=== PATIENT | female | born 1960 | race Caucasian/White ===

== ENCOUNTER 2020-07-14 10:58 | Outpatient (REF) | payer BC, SELFPAY ==
[2020-07-14 11:31] LABS: Basophils Percent Auto 0.4 % (0-2); Eosinophils Absolute Auto 0.1 X10*3/uL (0.0-0.4); Eosinophils Percent Auto 1.3 % (0-4); Hematocrit 37.8 % (37-47); Hemoglobin 12.5 g/dl (12.0-16.0); Imm Gran Abs Auto 0.02 X10*3/uL (0.00-0.03); Imm Gran Pct Auto 0.4 % (0.0-0.4); Lymphocytes Absolute Auto 0.3 X10*3/uL (1.2-4.9); Lymphocytes Percent Auto 6.2 % (20-40); MANUAL DIFF FLAG SCAN; Mean Corpuscular HGB Conc 33.1 g/dl (31.0-35.0); Mean Corpuscular Hemoglobin 30.1 pg (27.0-33.0); Mean Corpuscular Volume 91.1 fL (80-98); Mean Platelet Volume 10.6 fL (9.4-12.3); Monocytes Absolute Auto 0.9 X10*3/uL (0.1-1.2); Monocytes Percent Auto 19.4 % (2-11); Neutrophils Absolute Auto 3.3 X10*3/uL (2.0-8.3); Neutrophils Percent Auto 72.3 % (45-73); Platelet Count 338 X10*3/uL (160-400); Red Blood Count 4.15 X10*6/uL (4.20-5.50); Red Cell Distribution Width 13.3 % (11.0-16.0); SCAN SMEAR FLAG 1; White Blood Count 4.5 X10*3/uL (4.8-10.8)
[2020-07-14 12:05] LABS: SLIDE REVIEW VERIFIED
== END 2020-07-14 10:59 | disposition home or self-care (01) ==
LOC: HO.LAB 10:58
PROVIDERS: PCP Internal Medicine; Visit Provider Psychiatry & Neurology Neurology
DX: A49.9 Bacterial infection, unspecified (principal)
CPT/HCPCS: 36415; 85025

== ENCOUNTER 2020-10-06 09:41 | Outpatient (REF) | payer BC, SELFPAY ==
--- NOTE | ~2020-10-06 | US_ITS ---
EXAMINATION: US RETROPERITONEAL LIMITED (RENAL ONLY) CLINICAL INFORMATION: Calculus of kidney. COMPARISON: None TECHNIQUE: US shankar-scale imaging of kidneys was performed. FINDINGS: RIGHT KIDNEY: 10.2 x 4.3 x 4.3 cm (SAG x AP x TRV). The kidney is normal in size, contour, and echogenicity. Renal cortical thickness is normal. No calculi or focal parenchymal lesions. There is mild pelvic fullness. LEFT KIDNEY: 10.4 x 4.6 x 5.2 cm (SAG x AP x TRV). The kidney is normal in size, contour, and echogenicity. Renal cortical thickness is normal. There are 2 anechoic cysts in the lower pole measuring 0.6 x 0.5 x 0.5 cm and 1.4 x 1.1 x 1.4 cm. No additional lesions seen. There is no hydronephrosis. US/US renal BI IMPRESSION: Mild pelvic fullness right kidney. Two small cyst lower pole left kidney. No echogenic renal calculi or hydronephrosis.
[2020-10-06 11:26] LABS: Albumin Level 4.3 g/dL (3.5-5.0); Anion Gap 14 (12-20); Blood Urea Nitrogen 22 mg/dL (9-16); Calcium 9.9 mg/dL (8.4-10.2); Carbon Dioxide 26 mmol/L (22-29); Chloride 104 mmol/L (96-108); Estimated Glomerular Filt Rate > 60; Magnesium 2.1 mg/dL (1.6-2.6); Potassium 5.1 mmol/L (3.3-5.1); Sodium 139 mmol/L (135-145)
[2020-10-08 10:22] LABS: Calcium (PTHI) 10.2 mg/dL (8.6-10.4); PTHI 79 pg/mL (14-64)
== END 2020-10-06 09:42 | disposition home or self-care (01) ==
LOC: HO.US 09:41
PROVIDERS: Internal Medicine Hypertension Specialist; PCP Internal Medicine; Visit Provider Urology
DX: N20.0 Calculus of kidney (principal); I10 Essential (primary) hypertension; D63.8 Anemia in other chronic diseases classified elsewhere
CPT/HCPCS: 36415; 76775; 80051; 82040; 82310; 82565; 83735; 83970; 84520

== ENCOUNTER → 2020-10-08 09:07 | Outpatient (BNVA) | payer BC, SELFPAY | PROVIDERS: Visit Provider Urology ==

== ENCOUNTER 2021-10-06 08:27 | Outpatient (REF) | payer BC, SELFPAY ==
[2021-10-06 10:04] LABS: Alanine Aminotransferase 29 U/L (0-31); Alkaline Phosphatase 103 U/L (39-117); Anion Gap 11 (12-20); Aspartate Amino Transferase 22 U/L (5-31); Bilirubin Total 0.4 mg/dL (0.0-1.0); Blood Urea Nitrogen 17 mg/dL (9-16); Calcium 9.7 mg/dL (8.4-10.2); Carbon Dioxide 26 mmol/L (22-29); Chloride 106 mmol/L (96-108); Estimated Glomerular Filt Rate > 60; Glucose Random 96 mg/dL (60-115); Potassium 4.9 mmol/L (3.3-5.1); Sodium 138 mmol/L (135-145)
[2021-10-06 10:20] LABS: Vitamin D 25-OH Total 27.5 ng/mL (>30)
[2021-10-06 10:22] LABS: Uric Acid 5.4 mg/dL (2.4-5.7)
[2021-10-07 14:21] LABS: Calcium (PTHI) 9.6 mg/dL (8.6-10.4); PTHI 75 pg/mL (16-77)
== END 2021-10-06 08:28 | disposition home or self-care (01) ==
LOC: HO.LAB 08:27
PROVIDERS: PCP Physician Assistant Medical; Visit Provider Internal Medicine Hypertension Specialist
DX: N20.0 Calculus of kidney (principal)
CPT/HCPCS: 36415; 80053; 82306; 83970; 84550

== ENCOUNTER → 2021-10-07 08:10 | Outpatient (BNVA) | payer BC, SELFPAY | PROVIDERS: PCP Internal Medicine | DX: N28.1 Cyst of kidney, acquired (principal) ==

== ENCOUNTER 2021-12-05 10:02 | Outpatient (REF) | payer BC, SELFPAY ==
--- NOTE | ~2021-12-05 | US_ITS ---
EXAMINATION: US RETROPERITONEAL LIMITED (RENAL ONLY) CLINICAL INFORMATION: Cyst of kidney, acquired. COMPARISON: Renal ultrasound 10/06/2020, 10/01/2019, KUB 03/08/2016 TECHNIQUE: Real-time imaging of the kidneys. FINDINGS: RIGHT KIDNEY: 9.9 x 4.0 x 4.4 cm (SAG x AP x TRV). The kidney is normal in size, contour, and echogenicity. Renal cortical thickness is normal. No visible calculi or focal parenchymal lesions. No hydronephrosis. LEFT KIDNEY: 10.0 x 4.8 x 5.1 cm (SAG x AP x TRV). The kidney is normal in size, contour, and echogenicity. Renal cortical thickness is normal. 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 No visible renal calculi or hydronephrosis. There are 2 incidental simple cysts, the larger mid to lower pole measuring only 1.3 cm and the smaller lower pole measuring only 0.7 cm. No additional imaging recommended. US/US renal BI IMPRESSION: -No hydronephrosis or caliectasis. No visible calculi. -2 small incidental simple cysts left kidney, larger measuring only 1.3 cm. No additional imaging recommended.
== END 2021-12-05 10:03 | disposition home or self-care (01) ==
LOC: HO.US 10:02
DX: N28.1 Cyst of kidney, acquired (principal); N20.0 Calculus of kidney
CPT/HCPCS: 76775

== ENCOUNTER 2022-09-15 08:29 | Outpatient (REF) | payer BC, SELFPAY ==
--- NOTE | ~2022-09-15 | US_ITS ---
EXAMINATION: US RETROPERITONEAL LIMITED (RENAL ONLY) CLINICAL INFORMATION: Cyst of kidney, acquired. COMPARISON: Renal ultrasound 12/05/2021 and 10/06/2020. X-ray KUB 03/08/2016. TECHNIQUE: Real-time imaging of the kidneys. FINDINGS: RIGHT KIDNEY: 9.9 x 4.4 x 3.7 cm (SAG x AP x TRV). The kidney is normal in size, contour, and echogenicity. Renal cortical thickness is normal. No focal parenchymal lesions or hydronephrosis. There is an echogenic stone in lower pole measuring 0.2 x 0.2 x 0.2 cm. There is mild pelvic fullness. LEFT KIDNEY: 9.9 x 5.2 x 4.6 cm (SAG x AP x TRV). The kidney is normal in size, contour, and echogenicity. Renal cortical thickness is normal. No renal calculi or hydronephrosis. There are anechoic cysts in the lower pole measuring 1.2 x 1.2 x 1.2 cm and 0.7 0.6-0.7 cm. US/US renal BI IMPRESSION: 1. Nonobstructive echogenic renal calculi lower pole right kidney. 2. 2 anechoic cysts right kidney. 3. Mild pelvic fullness right kidney. 4. No major change from previous ultrasound exam 12/05/2021.
== END 2022-09-15 08:30 | disposition home or self-care (01) ==
LOC: HO.US 08:29
PROVIDERS: Visit Provider Nurse Practitioner Family
DX: N28.1 Cyst of kidney, acquired (principal)
CPT/HCPCS: 76775

== ENCOUNTER → 2022-10-05 08:46 | Outpatient (BNVA) | payer BC, SELFPAY | PROVIDERS: PCP Internal Medicine; Visit Provider Nurse Practitioner Family ==

== ENCOUNTER 2022-10-20 09:30 | Outpatient (REF) | payer BC, SELFPAY ==
[2022-10-20 10:54] LABS: Appearance Urine Clear; Color Urine Yellow; Glucose Urine UA Negative (Negative); Leukocyte Esterase Urine Small (1+) (Negative); Nitrite Urine Negative (Negative); UMIC TRIGGER UA YES; Urine Blood Negative (Negative); Urine Ketones Negative (Negative); Urine Protein Negative (Neg-Trace)
[2022-10-20 11:07] LABS: Bacteria Urine Trace (None Seen); Hyaline Casts Urine 0-2 /LPF (0-2); RBC Urine 0-2 /HPF (0-2); WBC Urine 0-5 /HPF (0-5)
== END 2022-10-20 09:31 | disposition home or self-care (01) ==
LOC: HO.LAB 09:30
PROVIDERS: PCP Physician Assistant Medical; Visit Provider Internal Medicine Hypertension Specialist
DX: I10 Essential (primary) hypertension (principal); N20.0 Calculus of kidney
CPT/HCPCS: 36415; 80053; 81001

== ENCOUNTER 2023-09-24 07:49 | Outpatient (REF) | payer BC, SELFPAY ==
--- NOTE | ~2023-09-24 | US_ITS ---
EXAMINATION: US RETROPERITONEAL LIMITED (RENAL ONLY) CLINICAL INFORMATION: Calculus of kidney. COMPARISON: Renal ultrasound 09/15/2022 and 12/05/2021. CT abdomen and pelvis 07/20/2012. TECHNIQUE: Real-time imaging of the kidneys. FINDINGS: RIGHT KIDNEY: 9.8 x 3.9 x 4.7 cm (SAG x AP x TRV). The kidney is normal in size, contour, and echogenicity. Renal cortical thickness is normal. No renal calculi or hydronephrosis. 6 mm simple cyst in the lower pole. No follow-up imaging is recommended. LEFT KIDNEY: 10.5 x 4.8 x 4.8 cm (SAG x AP x TRV). The kidney is normal in size, contour, and echogenicity. Renal cortical thickness is normal. No renal calculi or hydronephrosis. 9 mm simple cyst in the lower pole. 1.4 cm simple cyst in the lower pole. No follow-up imaging is recommended. US/US renal BI IMPRESSION: No nephrolithiasis or hydronephrosis.
== END 2023-09-24 07:50 | disposition home or self-care (01) ==
LOC: HO.US 07:49
PROVIDERS: PCP Physician Assistant Medical; Visit Provider Nurse Practitioner Family
DX: N20.0 Calculus of kidney (principal)
CPT/HCPCS: 76775

== ENCOUNTER 2023-10-03 08:25 | Outpatient (AMB) | payer BC, SELFPAY ==
--- NOTE | 2023-10-03 08:28 | A.OFFVIS_ITS ---
Intake Visit Reasons: 1y/US(set) Intake Note: Patient is present for follow up nephrolithiasis/ultrasound (imaging 09/15/22) Urology Medications: vitamin b6 (patient requesting refills) Blood Thinner: none Procurement Forester Required: No Accompanied by: Self / Same As Patient Allergies levofloxacin [From LEVAQUIN] Allergy (Severe, Verified 10/03/23 09:04) RENDERS PT IMMOBILE acetaminophen [From PERCOCET] Allergy (Unknown, Verified 10/03/23 09:04) NAUSEA & VOMITING lisinopril Allergy (Unknown, Verified 10/03/23 09:04) Unknown oxycodone [From PERCOCET] Allergy (Unknown, Verified 10/03/23 09:04) NAUSEA & VOMITING gluten Adverse Reaction (Unknown, Uncoded 10/03/23 09:04) constipation Medication List - Last Reconciled 10/03/23 by SUNDAY Saunders losartan 50 mg PO DAILY ocrelizumab (Ocrevus) 600 mg IV [id number] pyridoxine (vitamin B6) 50 mg (1/2 x 100 mg) PO DAILY 90 days sodium bicarbonate 650 mg PO DAILY 90 days HPI Comments Details: Ana Laura is a pleasant 63 year old female patient of Dr. Alva. She presents to the office today for follow-up of her nephrolithiasis and renal cyst. Recent renal ultrasound results reviewed with the patient today. Bilateral kidneys with no calculi or hydronephrosis. Bilateral benign simple cysts noted that require no follow-up imaging per radiology report. In discussion with the patient today she reports to be doing and feeling well. She reports compliance with vitamin B6 50 mg daily as prescribed. She reports having come off of her MS medications and has been receiving IV infusions every 6 months and feels this has been extremely helpful. She currently denies any bothersome urinary issues or concerns. She discusses working full-time to save up for her house remodel she is currently undergoing. She denies urinary urgency, urinary frequency, incontinence, nocturia, hematuria, dysuria, foul smelling urine, changes to urinary stream, flank pain, fever, and or chills. She is happy with her current voiding parameters. In office urinalysis results r eviewed with the patient today. She discusses her long history and nelson with MS for over 35 years. Nephrolithiasis Prior history of kidney stones Doing well with hydration in using lemon water therapy Imaging 10/01 left 2 small renal cyst Imaging 10/03 right 2mm stone lower pole; left 2 small renal cyst. Therapeutic plan - continue fluid intake - interval imaging - continue Vitamin B6 [facility] Medical History Multiple sclerosis Review of Systems Const Reports as per HPI Eyes Reports no additional complaints ENT Reports no additional complaints Card Reports no additional complaints Resp Reports no additional complaints GI Reports no additional complaints Reports as per HPI Musc Reports no additional complaints Neuro Reports as per HPI Psych Reports no additional complaints Endo Reports no additional complaints Matthias/Lymph Reports no additional complaints Aller/Immun Reports no additional complaints Physical Exam Const General: cooperative, healthy appearing, comfortable, no acute distress, well developed, alert and awake Orientation/consciousness: patient oriented x3 Limitations: no limitations HEENT Head: Yes normal to inspection, Yes normocephalic and Yes atraumatic Ears: hearing grossly normal bilaterally Eyes General: appearance normal, both eyes and all related structures Neck Neck: Yes normal visual inspection and Yes trachea midline Chest Chest palpation & inspection: normal inspection of the chest Resp Effort & Inspection: normal respiratory effort and able to speak in complete sentences Cardio Rate: regular rate GI Inspection: Yes normal to inspection General: Yes no CVA tenderness Back/Spine/Pelvis Back: no CVA tenderness Skin General skin exam: no rashes or lesions noted Neuro General: patient oriented x3 Extrem General: Yes normal to inspection Psych Appearance: grossly normal and well kempt Mental Status: mental status grossly normal Speech and movement: Normal speech and movement present and Clear speech present Affect: normal affect Attitude: cooperative Thought process: Normal thought process present Thought content: Normal thought content present Insight: Good insight present (Psych) Judgement: Good judgement present (Psych) Results AMB Urinalysis, Automated UA Leukoctes 70 Farida/uL Last Edit by Mya Martinez on 10/03/23 08:48 UA Nitrite Negative Last Edit by Mya Martinez on 10/03/23 08:48 UA Urobilinogen 0.2 mg/dL Last Edit by Mya Martinez on 10/03/23 08:48 UA Protein 15 mg/dL Last Edit by Mya Martinez on 10/03/23 08:48 UA pH 5.5 Last Edit by Mya Martinez on 10/03/23 08:48 UA Blood 0 Emmett/uL Last Edit by Mya Martinez on 10/03/23 08:48 UA Specific [place] 1.015 Last Edit by Mya Martinez on 10/03/23 08:48 UA Ketone Negative Last Edit by Mya Martinez on 10/03/23 08:48 UA Bilirubin 0 mg/dL Last Edit by Mya Martinez on 10/03/23 08:48 UA Glucose 0 mg/dL Last Edit by Mya Martinez on 10/03/23 08:48 Results Reviewed Results Reviewed: Laboratory Last Values Urine pH (Auto) 5.5 10/03/23 08:43 Specific [place] (Auto) 1.015 10/03/23 08:43 Urine Protein (Auto) 15 mg/dL 10/03/23 08:43 Glucose (UA)(Auto) 0 mg/dL 10/03/23 08:43 Urine Ketones (Auto) Negative 10/03/23 08:43 Urine Blood (Auto) 0 Emmett/uL 10/03/23 08:43 Urine Nitrite (Auto) Negative 10/03/23 08:43 Urine Bilirubin (Auto) 0 mg/dL 10/03/23 08:43 Urine Urobilinogen (Auto) 0.2 mg/dL 10/03/23 08:43 Leukocyte Esterase (Auto) 70 [place]/uL 10/03/23 08:43 Date of Service: 09/24/23 EXAMINATION: US RETROPERITONEAL LIMITED (RENAL ONLY) FINDINGS: RIGHT KIDNEY: 9.8 x 3.9 x 4.7 cm (SAG x AP x TRV). The kidney is normal in size, contour, and echogenicity. Renal cortical thickness is normal. No renal calculi or hydronephrosis. 6 mm simple cyst in the lower pole. No follow-up imaging is recommended. LEFT KIDNEY: 10.5 x 4.8 x 4.8 cm (SAG x AP x TRV). The kidney is normal in size, contour, and echogenicity. Renal cortical thickness is normal. No renal calculi or hydronephrosis. 9 mm simple cyst in the lower pole. 1.4 cm simple cyst in the lower pole. No follow-up imaging is recommended. IMPRESSION: No nephrolithiasis or hydronephrosis. Assessment & Plan Assessment & Plan (1) Renal cyst: Code(s): N28.1 - Cyst of kidney, acquired Category: Medical (2) Nephrolithiasis: Code(s): N20.0 - Calculus of kidney Category: Medical Plan In office urinalysis results reviewed with the patient today; as noted above. Recent renal imaging results reviewed with the patient today; as noted above. Patient currently denies any bothersome urinary issues or concerns. She reports be happy with current voiding parameters. Continue vitamin B6 50 mg daily as discussed and prescribed. Discussed, educated, and stressed the importance of drinking plenty of water daily. Will obtain renal ultrasound in 1 year. Follow-up in 1 year with imaging to be completed prior; or sooner with any issues, concerns, and or questions. Orders: Orders AMB Urinalysis Automated Today Z13.9 - Encounter for screening, unspecified US renal BI 1 Year N20.0 - Calculus of kidney, N28.1 - Cyst of kidney, acquired Patient Instructions: The patient had an opportunity to ask questions regarding the treatment plan. All questions were answered. Physical exam, labs, and imaging were discussed and reviewed in detail. As well as risks, benefits, and discussion of treatment choices. No major barriers to understanding were identified. The patient expressed understanding and agreement with the above treatment plan. The patient was made aware they should contact our office by phone for worsening of their current condition, the appearance of new symptoms, or with any questions or concerns. Compliance is encouraged with any medications and follow up testing that is ordered. It is a privilege to be allowed the opportunity to participate in? your urological care.? Again, if you have any questions or concerns If you have any questions or concerns please do not hesitate to contact me. The office is [phone]. This note is constructed using voice recognition software. While every effort has been made to ensure accuracy warehouse delivery driver errors may have been included. Yours sincerely, SUNDAY Saunders Coding Level of Care Code Est Pt Level 3 (19556) Diagnoses Renal cyst N28.1 Nephrolithiasis N20.0
== END 2023-10-03 09:02 | disposition home or self-care (01) ==
PROVIDERS: Visit Provider Nurse Practitioner Family
DX: N28.1 Cyst of kidney, acquired (principal); N20.0 Calculus of kidney; Z13.9 Encounter for screening, unspecified
CPT/HCPCS: 99213

== ENCOUNTER → 2023-10-03 08:25 | Outpatient (BNVA) | payer BC, SELFPAY | PROVIDERS: Visit Provider Nurse Practitioner Family | DX: N28.1 Cyst of kidney, acquired (principal); N20.0 Calculus of kidney | CPT/HCPCS: 81003 ==

== ENCOUNTER 2023-10-15 10:28 | Outpatient (AMB) | payer BC, SELFPAY ==
[2023-10-15 10:33] VITALS: BP 132/72; PULSE 74; O2SAT 96; BMI 33.5
--- NOTE | 2023-10-15 10:33 | HO.NEPHOV_ITS ---
Vital Signs 10/15/23 10:33 Height 5 ft 3.5 in Weight 192 lb BMI 33.5 BP 132/72 Blood Pressure Location Rt brachial Position Sitting Pulse 74 Pulse Source Pulse Oximeter Pulse Oximetry (%) 96 Oxygen Delivery Method Room Air Intake Visit Reasons: Kidney stones 1 year follow up/ Confirmed Lehr Tender Required: No Accompanied by: Self / Same As Patient Allergies levofloxacin [From LEVAQUIN] Allergy (Severe, Verified 10/15/23 10:35) RENDERS PT IMMOBILE acetaminophen [From PERCOCET] Allergy (Unknown, Verified 10/15/23 10:35) NAUSEA & VOMITING lisinopril Allergy (Unknown, Verified 10/15/23 10:35) Unknown oxycodone [From PERCOCET] Allergy (Unknown, Verified 10/15/23 10:35) NAUSEA & VOMITING gluten Adverse Reaction (Unknown, Uncoded 10/03/23 09:04) constipation Medication List - Last Reconciled 10/15/23 by Topher Hammer MD losartan 50 mg PO DAILY ocrelizumab (Ocrevus) 600 mg IV [id number] pyridoxine (vitamin B6) 50 mg (1/2 x 100 mg) PO DAILY 90 days sodium bicarbonate 650 mg PO DAILY 90 days HPI Comments Details: 62-year-old woman with a history of nephrolithiasis. From renal standpoint she is doing well. No new renal issues. She is on sodium bicarbonate tablets History of MS [facility] Medical History Multiple sclerosis Family History (Updated 10/15/23 @ 10:36 by Nicolette Cancino) Mother Hypertension Social History (Updated 10/15/23 @ 10:36 by Nicolette Cancino) Patient Tobacco Use Status: Former Tobacco user Physical Exam Vital Signs: Last Vital Signs Pulse 74 10/15/23 10:33 BP 132/72 10/15/23 10:33 Pulse Ox 96 10/15/23 10:33 Oxygen Delivery Method Room Air 10/15/23 10:33 BMI result Body Mass Index 33.5 Awake. Comfortable. Neck is supple. Mucosa moist. Lungs bilateral scattered rhonchi. Heart S1-S2 heard no gallop. Abdomen soft. Extremities no edema. No involuntary movements. No myoclonus. Results Reviewed Nephrology Results: Sodium 138 mmol/L (135-145) 10/06/21 Potassium 4.9 mmol/L (3.3-5.1) 10/06/21 Chloride 106 mmol/L (96-108) 10/06/21 Carbon Dioxide 26 mmol/L (22-29) 10/06/21 BUN 17 mg/dL (9-16) H 10/06/21 Creatinine 0.71 mg/dL (0.5-1.4) 10/06/21 Calcium 9.7 mg/dL (8.4-10.2) 10/06/21 PTH Intact 75 pg/mL (16-77) 10/06/21 Urine Protein Negative mg/dL (Neg-Trace) 10/20/22 Renal US 09/24/23 Assessment & Plan Assessment & Plan (1) Nephrolithiasis: Code(s): N20.0 - Calculus of kidney Category: Medical Plan Recent renal ultrasonogram did not reveal any renal stones. Encouraged her to stay on low-sodium diet Increase p.o. fluid intake to maintain a urine output of 2 L. Blood pressure is well controlled. No changes were made today. She will see her again in the next 1 year Orders: Orders Basic Metabolic Panel 11 Months N20.0 - Calculus of kidney UA and rflx microscopic 11 Months N20.0 - Calculus of kidney Complete Blood Count Auto Diff 11 Months N18.30 - Chronic kidney disease, stage 3 unspecified, N20.0 - Calculus of kidney Medications: Refilled sodium bicarbonate 650 mg PO DAILY 90 tabs 1RF 90 days Coding Level of Care Code Est Pt Level 3 (54072) Diagnoses Nephrolithiasis N20.0
== END 2023-10-15 11:01 | disposition home or self-care (01) ==
PROVIDERS: PCP Physician Assistant Medical; Visit Provider Internal Medicine Hypertension Specialist
DX: N20.0 Calculus of kidney (principal)
CPT/HCPCS: 99213

== ENCOUNTER → 2023-10-15 10:28 | Outpatient (BNVA) | payer BC, SELFPAY | PROVIDERS: PCP Physician Assistant Medical; Visit Provider Internal Medicine Hypertension Specialist ==

== ENCOUNTER 2024-09-15 07:44 | Outpatient (REF) | payer BC, SELFPAY ==
--- NOTE | ~2024-09-15 | US_ITS ---
CLINICAL HISTORY: N20.0 - Calculus of kidney US renal with Color Doppler Comparison: US/SR - US RENAL BI - 09/24/23 07:57 EDT US/SR - US RENAL BI - 09/15/22 08:42 EDT US/SR - US RENAL BI - 12/05/21 10:09 EDT Findings: Right kidney normal size and echotexture, 10.8 cm length. Mild pelvicaliectasis. Normal color flow. No nephrolithiasis. Lower pole renal cortical cyst measuring 9 x 8 x 9 mm previously measuring 6 x 5 x 6 mm. Left kidney normal size and echotexture, 11.5 cm length. No nephrolithiasis. Normal color flow. Hypoechoic lesion lower pole measuring 1.4 x 1.3 x 1.2 cm previously measuring 1.4 x 1.3 x 1.0 cm and 0.9 x 0.8 x 0.7 cm previously measuring 0.9 x 0.8 x 0.8 cm. Impression: 1. Kidneys normal size and position with normal cortical width and echotexture. No nephrolithiasis. Mild pelvicaliectasis on the right. Renal cortical cyst lower pole right kidney. Indeterminate hypoechoic lesions lower pole left kidney little changed can be correlated with a dedicated CT or MRI renal protocol study with and without contrast This document has been electronically signed by: Adonis Gavin MD on 09/15/2024 08:58:02
--- OUTSIDE RECORDS SUMMARY | 2024-09-15 07:47 | XMS_ITS | Encounter Summary ---
Author Organization [facility] Address [address] [place] [id number] Care Team Providers Care Bread Racker Name Role Phone Tia Goodwin PA-C Primary Care Provi margo Eloy Canales MD Unavailable [phone] Cecille Mendez MD Unavailable [phone] Encounter Details Date Type Department Care Team (Late Contact Info) Description 04/29/2024 Scanned Document [facility] [address] [place] [address] Neurology, Scan Social History Tobacco Use Types Packs/Day Years Used Date Smoking Tobacco: Former Cigarettes 1 25 Smokeless Tobacco: Never Alcohol Use Standard Drinks/Week Comments Not Currently 0 (1 standard drink = 0.6 oz pur e alcohol) PHQ-2 Answer Date Recorded PHQ-2 Total Score 0 02/20/2024 Comments Unknown Sex and Gender Information Value Date Recorded Sex Assigned at Not on file Legal Sex Female 6:46 PM EST Gender Identity Not on file Sexual Orientation Not on file documented as of this encounter Plan of Treatment Upcoming Encounters Date Type Department Care Team (Late Contact Info) Description 02/24/2025 8:30 AM EDT Office Visit [address] [place] [phone] Tia Goodwin PA-C [address] [place] [phone] documented as of this encounter Visit Diagnoses Not on filedocumented in this encounter Care Teams Bread Racker Relationship Specialty Start Date End Date Tia Goodwin PA-C [address] [place] [address] PCP - General Internal Medicine 08/26/23 Eloy Canales MD [address] [address] Neurology 08/26/23 Cecille Mendez MD [address] [facility] [address] [place] [address] Referring Provider Obstetrics and Gynecology 08/26/23 Natalie Walker Physician Gastroenterology 08/13/23 documented as of this encounter
--- OUTSIDE RECORDS SUMMARY | 2024-09-15 07:47 | XMS_ITS | Encounter Summary ---
Author Organization [address] [address] Care Team Providers Care Resource Agent Name Role Phone Tia Goodwin PA-C Primary Care Provi margo Eloy Canales MD Unavailable [phone] Cecille eMndez MD Unavailable [phone] Encounter Details Date Type Department Care Team (Late Contact Info) Description 08/28/2023 Scanned Document [address] [phone] Primary Care, Scan Social History Tobacco Use Types Packs/Day Years Used Date Smoking Tobacco: Former Cigarettes 1 25 Smokeless Tobacco: Never Alcohol Use Standard Drinks/Week Comments Not Currently 0 (1 standard drink = 0.6 oz pur e alcohol) PHQ-2 Answer Date Recorded PHQ-2 Total Score 0 08/27/2023 Comments Unknown Sex and Gender Information Value Date Recorded Sex Assigned at Not on file Legal Sex Female 6:46 PM EST Gender Identity Not on file Sexual Orientation Not on file documented as of this encounter Plan of Treatment Upcoming Encounters Date Type Department Care Team (Late Contact Info) Description 02/24/2025 8:30 AM EDT Office Visit [address] [phone] Tia Goodwin PA-C [address] [place] [phone] documented as of this encounter Visit Diagnoses Not on filedocumented in this encounter Care Teams Resource Agent Relationship Specialty Start Date End Date Tia Goodwin PA-C [address] [place] [address] PCP - General Internal Medicine 08/26/23 Eloy Canales MD [address] [address] Neurology 08/26/23 Cecille Mendez MD 46 [facility] [place]Note 2] [address] [place] [address] Referring Provider Obstetrics and Gynecology 08/26/23 Natalie Walker Physician Gastroenterology 08/13/23 documented as of this encounter
--- OUTSIDE RECORDS SUMMARY | 2024-09-15 07:47 | XMS_ITS | Encounter Summary ---
Author Organization [address] [address] Care Team Providers Care Fitness Centre Manager Name Role Phone Tia Goodwin PA-C Primary Care Provi margo Eloy Canales MD Unavailable [phone] Cecille Mendez MD Unavailable [phone] Encounter Details Date Type Department Care Team (Late st Contact Info) Description 08/27/2023 Scanned Document [address] [phone] Primary Care, Scan Social History Tobacco Use [...] on file documented as of this encounter Functional Status * Question Answer Date of Assessment Author Feeling nervous, anxious, or on edge 0 08/27/2023 8:24 AM EDT Vickie Ryan MA Not being able to stop or control worrying 0 08/27/2023 8:24 AM EDT Vickie Ryan MA Worrying too much about different things 0 08/27/2023 8:24 AM EDT Vickie Ryan MA Trouble relaxing 0 08/27/2023 8:24 AM EDT Vickie Sommers MA Being so restless that it is hard to sit still 1 08/27/2023 8:24 AM Vickie Ness MA Becoming easily annoyed or irritable 0 08/27/2023 8:24 AM Vickie Ness MA Feeling afraid as if somethi ng awful might happen 0 08/27/2023 8:24 AM JENNIFERT Vickie Ryan MA * Over the past 2 weeks, how often have you been bothered by any of the following problems? Question Answer Date of Assessment Author Patient Health Questionnaire -2 Score 0 08/27/2023 8:23 AM Vickie Ness MA * Question Answer Date of Assessment Author Patient Health Questionnaire -9 Score 0 08/27/2023 8:23 AM Vickie Ness MA * Over the last 2 weeks, how often have you been bothered by any of the following problems? Question Answer Date of Assessment Author ALEXANDER-7 Total Score 1 08/27/2023 8:24 AM Vickie Ness MA * Question Answer Date of Assessment Author Little interest or pleasure in doing things Not at all 08/27/2023 8:23 AM Vickie Ness MA Feeling down, depressed, or hopeless Not at all 08/27/2023 8:23 AM Vickie Ness MA Trouble falling or staying asleep, or sleeping too much Not at all 08/27/2023 8:23 AM Vickie Ness MA Feeling tired or having little energy Not at all 08/27/2023 8:23 AM Vickie Ness MA Poor appetite or overeating Not at all 08/27/2023 8:23 AM Vickie Ness MA Feeling bad about yourself - or that you are a failure or have let yourself or your family down Not at all 08/27/2023 8:23 AM Vickie Ness MA Trouble concentrating on things, such as reading the newspaper or watching television Not at all 08/27/2023 8:23 AM EDT Vickie Ryan MA Moving or speaking so slowly that other people could have noticed? Or the opposite - being so fidgety or restless that you have been moving around a lot more than usual. Not at all 08/27/2023 8:23 AM EDT Vickie Ryan MA Thoughts that you would be better off or hurting yourself in some way Not at all 08/27/2023 8:23 AM EDT Vickie Ryan MA How difficult have these problems made it for you to do your work, take care of things at home, or get along with other people? Not difficult at all 08/27/2023 8:23 AM EDT Vickie Ryan MA documented as of this encounter Plan of Treatment Upcoming Encounters Date Type Department Care Team (Late st Contact Info) Description 02/24/2025 8:30 AM EDT [facility] [address] [facility] [address] [place] [address] Tia Goodwin PA-C [address] [place] [address] documented as of this encounter Visit Diagnoses Not on filedocumented in this encounter Care Teams Fitness Centre Manager Relationship Specialty Start Date End Date Tia Goodwin PA-C [address] [place] [address] PCP - General Internal Medicine 08/26/23 Eloy Canales MD [address] [address] Neurology 08/26/23 Cecille Mendez MD 46 [facility] [address] [place] [address] Referring Provider Obstetrics and Gynecology 08/26/23 Natalie Walker Physician Gastroenterology 08/13/23 documented as of this encounter
--- OUTSIDE RECORDS SUMMARY | 2024-09-15 07:47 | XMS_ITS ---
Author Organization [facility] Address [address] [place] [address] Care Team Providers Care Director Of Sales And Marketing Name Role Phone KAMINI KRISTINA YOMI Primary Care Provider Unavail able Cecille Mendez Unavailable [phone] Allergies Allergen (clinical drug ingredient) Drug/Non Drug Allergy documented on EMR Reaction Allergy Type Onset Date Status LEVAQUIN Kidney Stones Drug Allergy Act varghese Lisinopril Cough/Vomiting Drug Allergy A ctive Results Component Value Reference Range Notes [id number] IGP No Culture 30 Plus Reviewed date:02/04/2024 03:28:00 PM Interpretation: Performing Lab:[facility] [place], [address], [address], [place], Phone - [phone], Director - [facility] Notes/Report: Clinical Information:[id number] Dates / Results....01/14/21 NIL, Neg HPV Other..............Post Menopausal No. of containers..01 ThinPrep Vial DIAGNOSIS: NEGATIVE FOR IN TRAEPITHELIAL LESION OR MALIGNANCY. Specimen adequacy: Satisfactory for evaluation. Endocervical and/or squamous metaplastic cells (endocervical component) are present. Clinician provided ICD10: Z0 1.419 Performed by: Lois Navarro ytotechnologist (ASCP) . . Note: The Pap smear is a screening test designed to aid in the detection of premalignant and malignant conditions of the uterine cervix. It is not a diagnostic procedure and should not be used as the sole means of detecting cervical cancer. Both false-positive and false-negative reports do occur. . Test Methodology: This liquid based ThinPrep(R) pap test was screened with the use of an image guided system. HPV Aptima Negative Negative This nucleic acid amplification test detects fourteen high-risk HPV types (16,18,31,33,35,39,45,51,52,56,58 ,59,66,68) without differentiation. HPV Genotype Reflex Criteria not met, HPV Genotype not performed. PDF Report Reviewed date:02/04/2024 03:27:46 PM Interpretation: Performing Lab:[facility] [place], [address], [address], [place], Phone - [phone], Director - [facility] Notes/Report: Clinical Information:[id number] Dates / Results....01/14/21 NIL, Neg HPV Other..............Post Menopausal No. 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, Annual VB DEVELOPER Physical 60-85+ Medications Medication SIG (Take, Route, Frequency, Duration) Notes Start Date End Date Status Vitamin C 500MG 1 ORAL twice daily f or -3 Leno-MJ 02/07/2012 Active Turmeric 500 MG as directed Orally unknonw dose Active Losartan Potassium 50 MG Orally Active Magnesium 400 MG as directed Orally unknown dose Active Apple Cider Vinegar 600 MG as directed Orally unknown dose Active Sodium Bicarbonate 650 MG 1 tablet Orally Three times a day Active Ocrevus 300 MG/10ML as directed Intravenous 01/30/2024 Active Vitamin D3 50 MCG (2000 UT) 1 capsule Orally Once a day for 30 day(s) Active Social History Tobacco Use: Social History Observation Description Date Details (start date - stop date) Former Smoker NA - NA Tobacco Use/Smoking Question Answer Notes Are you a former smoker How long has it been since you last smoked? > 10 years Alcohol Screen (Audit-C) Question Answer Notes Did you have a drink contain ing alcohol in the past year? Yes How often did you have a dri nk containing alcohol in the past year? Monthly or less (1 point) How many drinks did you have on a typical day when you were drinking in the past year? 1 or 2 drinks (0 point) Points 1 Interpretation Negative Sexual History Question Answer Notes Had sex in the past 12 months (vaginal, oral, or anal)? No Vital Signs Height 62 in 01/30/2024 Weight 186 lbs 01/30/2024 BMI 34.02 kg/m2 01/30/2024 Blood pressure systolic 140 mm Hg 01/30/20 24 Blood pressure diastolic 100 mm Hg 024 Temperature 97.8 degrees Fahrenheit 01/30/20 24 Encounters Encounter Location Date Provider Diagnosis [address] [place] [address] 01/30/2024 Cecille Andrea Encounter for gynecological examination (general) (routine) without abnormal findings Z01.419 ; Encounter for screening mammogram for malignant neoplasm of breast Z12.31 ; Encounter for screening for osteoporosis Z13.820 ; Postmenopausal atrophic vaginitis N95.2 and Personal history of other diseases of the female genital tract Z87.42 Assessments Encounter Date Diagnosis (ICD Code) Assessment Notes Treatment Notes Treatment Clinical Notes Section Notes 01/30/2024 Encounter for gynecological examination (general) (routine) without abnormal findings (ICD-10 - Z01.419) PAP TEST WITH HPV TYPING WAS OBTAINED. 01/30/2024 Encounter for screening mammogram for malignant neoplasm of breast (ICD-10 - Z12.31) REGULAR MAMMOGRAMS AND SBE'S WERE RECOMMENDED. 01/30/2024 Encounter for screening for osteoporosis (ICD-10 - Z13.820) BMD WAS ORDERED. 01/30/2024 Postmenopausal atrophic vaginitis (ICD-10 - N95.2) DISCUSSED FINDINGS, DX AND TX OPTIONS. PAT IS ASYMPTOMATIC. 01/30/2024 Personal history of other diseases of the female genital tract (ICD-10 - Z87.42) DISCUSSED PREVIOUS HX OF ABNORMAL PAP TEST AND NEGATIVE WORK UP. REASSURED PAT OF NEGATIVE PAP TESTS SINCE THEN. Plan Of Treatment Treatment Notes Assessment Notes Encounter for gynecological examination (general) (routine) without abnormal findings PAP TEST WITH HPV TYPING WAS OBTAINED. Encounter for screening mamm ogram for malignant neoplasm of breast REGULAR MAMMOGRAMS AND SBE'S WERE RECOMMENDED. Encounter for screening for osteoporosis BMD WAS ORDERED. Postmenopausal atrophic vaginitis DISCUSSED FINDINGS, DX AND TX OPTIONS. PAT IS ASYMPTOMATIC. Personal history of other di seases of the female genital tract DISCUSSED PREVIOUS HX OF ABNORMAL PAP TEST AND NEGATIVE WORK UP. REASSURED PAT OF NEGATIVE PAP TESTS SINCE THEN. Pending Test Test Name Order Date MAMMOGRAM, SCREENING 01/30/2024 BONE DENSITY 01/30/2024 MM Digital Mammo Screening 01/30/2024 Next Appt Details Follow Up: 1 Year, Reason: Provider Name:Cecille lozano, 01/30/2025 08:50:00 AM, [address], [address], [place], [address], Progress Notes * CLAUDE ACLLEDOB:1960 ( 63 yo F)Acc No.[id number]:01/30/2024 PROGRESS NOTES Patient:?CLAUDE CALLE Appointment Provider:?Cecille lozano M.D. :1960???Age:63 Y???Sex:Female D ate:01/30/2024 Address:[address] [place] [address], [id number] Pcp:YOMI ACEVEDO Subjective: * Chief Complaints: * ???Annual VB DEVELOPER PhysicalAnnual VB DEVELOPER Physical 60-85+ * HPI: ???New/Follow-up Patient Consult:? 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 HER HAD PROSTATE CA.? THEY ARE NOT SEXUALLY ACTIVE. BRYANT HAS MULTIPLE SCLEROSUS AND IS IN REMISSION. SHE HAD ATYPICAL CELLS ON HER PAP TEST IN 2008.? WORK UP WAS NEGATIVE AND HER SUBSEQUENT PAP TESTS HAVE BEEN NEGATIVE.? HER LAST ONE IN 2020 WAS NEGATIVE? AND HPV NEGATIVE. HER LAST MAMMOGRAM DONE IN JAN 2024 SHOWED BREASTS ARE NOT DENSE AND WAS NORMAL. HER LAST BMD IN 2019 WAS NORML. SHE HAD A COLONOSCOPY DONE IN 2020. PFIZER X 4. ???Annual:? Patient presents for annual exam, ages 60-85, postmenopausal. ?General Health Maintenance:?Current breast complaints:?no breast pain, mass, discharge, or skin changes ?Urinary problems:?patient reports no urinary health problems or bowel health problems ?Calcium intake:?takes adequate calcium via diet and supplementation ?Significant VB DEVELOPER problems:?no significant coal getter symptoms or problems * ROS:?general:?no?chest pain.?no?palpitations.?no?headache.?no?cough.?no?shortness of breath.?no?fever.?no?unexplained weight loss.?no?nausea/vomiting.?no?change in bowel movements.?no blood in stool.?no?genitourinary complaints.?no?skin complaints.? * Medical History:? * Circulation Manager History:?/ Para?05/14.?Sexual activity?not currently sexually active.?Last Pap Smear:?01/14/21 NIL, NEG HPV, 10/16/17 NIL, NEG HRHPV, 09/02/2014 , neg, NEG HRHPV.?Mammogram:?01/23/24 Breast Tissue is Almost Entirely Fatty, 01/17/23 < 50% density, 01/12/22 Breast Tissue is Almost Entirely Fatty, 01/10/21 Breast Tissue is Almost Entirely Fatty, 01/08/20 < 50% density, , 10/02/17 Breast Tissue is Almost Entirely Fatty, 09/27/16 Breast Tissue is Almost Entirely Fatty, 08/2014 , normal, < 25 % Glandular.?LMP and menses?Pita.?Colonoscopy?2020, 2010.?Bone Density:?01/08/20.? * OB History:?Total pregnancies?1.?Total living children?1.?NVD?1.? * Surgical History:?Colonoscop y Colposcopy Lithotripsy Lithotripsy Kidney Stone 02/2016 * Hospitalization/Major Diagno stic Procedure:?1 Vaginal Delivery * Family History:?Mother: dece ased.?Father: 76 yrs, Alcoholic, Liver Cirrhosis.? * Social History:?Tobacco Use:?Tobacco Use/Smoking?Are you a?former smoker ?How long has it been since you last smoked??> 10 years ???Sexual History:?Sexual History?Had sex in the past 12 months (vaginal, oral, or anal)??No ?Details of Sexual History?Are you sexually active??No ???Drugs/Alcohol:?Drugs?Have you used drugs other than those for medical reasons in the past 12 months??No ?Alcohol Screen (Audit-C)?Did you have a drink containing alcohol in the past year??Yes ?How often did you have a drink containing alcohol in the past year??Monthly or less (1 point) ?How many drinks did you have on a typical day when you were drinking in the past year??1 or 2 drinks (0 point) ?Points?1 ?Interpretation?Negative ???Miscellaneous:?Children: yes, 1. ?Domestic violence: no. ?Exercise: yes, walking. ?Home smoke detector use: yes. ?Marital status: , in relationship with male partner. ?Natural support system: yes. 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 ?Sexual abuse: no. ?Sexually active: no. ?Verbal abuse: no. * Medications:?TakingApple Castillo er Vinegar 600 MG Capsule as directed Orally , Notes to Pharmacist: unknown doseMagnesium 400 MG Capsule as directed Orally , Notes to Pharmacist: unknown doseTurmeric 500 MG Capsule as directed Orally , Notes to Pharmacist: unknonw doseVitamin C 500MG 60 1 ORAL twice daily , Notes to Pharmacist: Leno-MJLosartan Potassium 50 MG Tablet Orally Sodium Bicarbonate 650 MG Tablet 1 tablet Orally Three times a day Vitamin D3 50 MCG (2000 UT) Capsule 1 capsule Orally Once a day Ocrevus 300 MG/10ML Solution as directed Intravenous Taking Apple Cider Vinegar 600 MG Capsule as directed Orally , Notes to Pharmacist: unknown doseTaking Magnesium 400 MG Capsule as directed Orally , Notes to Pharmacist: unknown doseTaking Turmeric 500 MG Capsule as directed Orally , Notes to Pharmacist: unknonw doseTaking Vitamin C 500MG 60 1 ORAL twice daily , Notes to Pharmacist: Leno-MJTaking Losartan Potassium 50 MG Tablet Orally Taking Sodium Bicarbonate 650 MG Tablet 1 tablet Orally Three times a day Taking Vitamin D3 50 MCG (1999 UT) Capsule 1 capsule Orally Once a day Taking Ocrevus 300 MG/10ML Solution as directed Intravenous DiscontinuedGilenya 0.5 MG Capsule 1 capsule Orally Once a day Medication List reviewed and reconciled with the patientDiscontinued Gilenya 0.5 MG Capsule 1 capsule Orally Once a day Medication List reviewed and reconciled with the patient * Allergies:?LEVAQUIN: Kidney Stones - AllergyLisinopril: Cough/Vomiting - Allergyno[Allergies Verified] Objective: * Vitals:?Ht: 62 in, Wt: 186 l bs, BMI:34.02Index, BP: 140/100 mm Hg, Temp: 97.8 F. * Examination: ???General Exam: ?CONSTITUTIONAL:?General Appearance:?alert, in no acute distress, normal, well nourished ?NECK/THYROID:?Inspection/Palpation:?normal ?Thyroid:?normal size and shape ?RESPIRATORY:?Auscultation: clear to auscultation bilaterally, Respiratory Effort: normal.?CARDIOVASCULAR:?Auscultation: regular rate and rhythm.?BREAST, Right:?Inspection/Palpation:?no discharge, no masses present, no nipple retraction, no skin changes, no skin dimpling, no tenderness, no lymphadenopathy, no axillary mass, no axillary tenderness ?BREAST, Left:?Inspection/Palpation:?no discharge, no masses present, no nipple retraction, no skin changes, no skin dimpling, no tenderness, no lymphadenopathy, no axillary mass, no axillary tenderness ?GASTROINTESTINAL:?Abdomen:?no masses, nontender, nondistended ?Liver and Spleen:?normal ?Hernias:?no hernias present, no inguinal adenopathy ?MUSCULOSKELETAL:?Inspection/Palpation:?no clubbing, cyanosis, or edema ?SKIN:?Skin:?normal ?NEURO/PSYCH:?Orientation:?time , place, person ?Mood/Affect:?normal?Genitourinary: ?EXTERNAL GENITALIA:?External Genitalia:?normal, no lesions ?VAGINA:?Vagina:?atrophic vaginal tissue, minimal moisture ?BLADDER:?Bladder:?no mass, nontender ?URETHRA:?Urethra:?no erythema or lesions present ?CERVIX:?Cervix:?no lesions, nontender ?UTERUS:?Uterus:?nontender, normal contour, normal mobility, normal size ?ADNEXA:?Adnexa:?no masses, no tenderness ?ANUS AND PERINEUM:?Anus/Perineum:?visually normal??? Assessment: * Assessment: 1.?Encounter for gynecologic al examination (general) (routine) without abnormal findings - Z01.419???2.?Encounter for screening mammogram for malignant neoplasm of breast - Z12.31???3.?Encounter for screening for osteoporosis - Z13.820???4.?Postmenopausal atrophic vaginitis - N95.2???5.?Personal history of other diseases of the female genital tract - Z87.42??? Plan: * Treatment: Notes: PAP TEST WITH HPV TYPING WAS OBTAINED.??2.?Encounter for screening mammogram for malignant neoplasm of breast?Imaging: MM Digital Mammo Screening Notes: REGULAR MAMMOGRAMS AND SBE'S WERE RECOMMENDED.??3.?Encounter for screening for osteoporosis?Imaging: BONE DENSITY* SCREENING AND PATIENT IS POS T MENOPAUSAL Z78.0 Notes: BMD WAS ORDERED.??4.?Postmenopausal atrophic vaginitis? Notes: DISCUSSED FINDINGS, DX AND TX OPTIONS. PAT IS ASYMPTOMATIC.??5.?Personal history of other diseases of the female genital tract? Notes: DISCUSSED PREVIOUS HX OF ABNORMAL PAP TEST AND NEGATIVE WORK UP. REASSURED PAT OF NEGATIVE PAP TESTS SINCE THEN.?? * Imaging:? * ?Imaging: MAMMOGRAM, SCR EENING * Procedure Codes:? * Preventive Medicine:? ??YOUR PREVENTIVE WELLNESS PLAN:?Osteoporosis prevention?Calcium, D, strength training.?Breast Cancer Screening (Mammogram):?annually.?Cervical Cancer Screening (Pap Smear):?q 3 years with HPV screen.?Colorectal Cancer Screening:?q 10 years.? * Follow Up:?1 Year * Images: Billing Information: * Visit Code:? [id number] Preventive Care Est Pt. Age 65 and over. * Procedure Codes:? * Sign off status: Completed true * Appointment Provider:?Cecille Mendez M.D. 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 HER HAD PROSTATE CA. THEY ARE NOT SEXUALLY ACTIVE. PAT HAS MULTIPLE SCLEROSUS AND IS IN REMISSION. SHE HAD ATYPICAL CELLS ON HER PAP TEST IN 2008. WORK UP WAS NEGATIVE AND HER SUBSEQUENT PAP TESTS HAVE BEEN NEGATIVE. HER LAST ONE IN 2020 WAS NEGATIVE AND HPV NEGATIVE. HER LAST MAMMOGRAM DONE IN JAN 2024 SHOWED BREASTS ARE NOT DENSE AND WAS NORMAL. HER LAST BMD IN 2019 WAS NORML. SHE HAD A COLONOSCOPY DONE IN 2020. [employer] X 4. Annual General Health Maintenance: Current breast complaints:: no breast pain, mass, discharge, or skin changes Urinary problems:: patient r smita no urinary health problems or bowel health problems Calcium intake:: takes adequ ate calcium via diet and supplementation Significant VB DEVELOPER problems:: n o significant coal getter symptoms or problems Examination Category Sub-Category Detail Notes Category Not es General Exam CONSTITUTIONAL: General Appearan ce:: alert, in no acute distress, normal, well nourished NECK/THYROID: Inspection/Palpation:: normal Thyroid:: normal size and shape RESPIRATORY: Auscultation: clear to auscultation bilaterally, Respiratory Effort: normal CARDIOVASCULAR: Auscultation: regula r rate and rhythm GASTROINTESTINAL: Abdomen:: no masses, nontender , nondistended Liver and Spleen:: normal Hernias:: no hernias present, no inguina l adenopathy MUSCULOSKELETAL: Inspection/Palpation:: no clubb ing, cyanosis, or edema SKIN: Skin:: normal NEURO/PSYCH: Orientation:: time , place, pers on Mood/Affect:: normal BREAST, Right: Inspection/Palpation :: no discharge, no masses present, no nipple retraction, no skin changes, no skin dimpling, no tenderness, no lymphadenopathy, no axillary mass, no axillary tenderness BREAST, Left: Inspection/Palpation :: no discharge, no masses present, no nipple retraction, no skin changes, no skin dimpling, no tenderness, no lymphadenopathy, no axillary mass, no axillary tenderness Genitourinary EXTERNAL GENITALIA: External Genitalia:: nor mal, no lesions VAGINA: Vagina:: atrophic vaginal tissue , minimal moisture BLADDER: Bladder:: no mass, nontender URETHRA: Urethra:: no erythema or lesions present CERVIX: Cervix:: no lesions, nontender UTERUS: Uterus:: nontender, normal conto ur, normal mobility, normal size ADNEXA: Adnexa:: no masses, no tendernes s ANUS AND PERINEUM: Anus/Perineum:: visually norm al
--- OUTSIDE RECORDS SUMMARY | 2024-09-15 07:47 | XMS_ITS | Patient Health Record ---
Author Organization [facility] [employer] Address [address] [place] [address] Care Team Providers Care Payment Poster Name Role Phone YOMI BOONE Primary Care Provider Unavail able Cecille Mendez Unavailable [phone] Allergies Allergen (clinical drug ingredient) Drug/Non Drug Allergy documented on EMR Reaction Allergy Type Onset Date Status LEVAQUIN Kidney Stones Drug Allergy Act varghese Lisinopril Cough/Vomiting Drug Allergy A ctive Results Component Value Reference Range Notes [id number] IGP No Culture 30 Plus Reviewed date:02/04/2024 03:28:00 PM Interpretation: Performing Lab:[facility] [place], [address], [address], [place], Phone - [phone], Director - [facility] Notes/Report: Clinical Information:[id number] Dates / Results....01/14/21 NIL, Neg HPV Other..............Post [...] Reviewed date:02/04/2024 03:27:46 PM Interpretation: Performing Lab:[facility] [place], [address], [address], [place], Phone - [phone], Director - [facility] Notes/Report: Clinical Information:[id number] Dates / Results....01/14/21 NIL, Neg HPV Other..............Post Menopausal No. of containers..01 ThinPrep Vial Reason For Referral No Information Medications Medication SIG (Take, Route, Frequency, Duration) Notes Start Date End Date Status Vitamin C 500MG 1 ORAL twice daily f or -3 Leno-MJ 02/07/2012 Active Turmeric 500 MG as directed Orally unknonw dose Active Sodium Bicarbonate 650 MG 1 tablet Orally Three times a day Active Losartan Potassium 50 MG Orally Active Magnesium 400 MG as directed Orally unknown dose Active Apple Cider Vinegar 600 MG as directed Orally unknown dose Active Ocrevus 300 MG/10ML as directed Intravenous 01/30/2024 Active Vitamin D3 50 MCG (1999 UT) 1 capsule Orally Once a day [...] 12 months (vaginal, oral, or anal)? No Problems Problem Type SNOMED Code ICD Code Onset Dates Problem Status W/U Status Risk Notes Problem Postmenopausal atrophic vaginitis (83717314) Postmenopausal atrophic vaginitis (N95.2) Active confirmed Problem Multiple sclerosis (98256680) Multiple sclerosis (340) Active confirmed Major Problem Benign essential hypertension (8209580) Essential hypertension, benign (401.1) Active confirmed Major Problem Pyelonephritis (40669673) Unspecified pyelonephritis (590.80) Active confirmed Diag Problem Calculus of kidney (35571709) Calculus of kidney (592.0) Active confirmed Major Problem Osteoarthritis (423362631) Osteoarthrosis, unspecified whether generalized or localized, unspecified site (715.90) Active confirmed Major Problem Gynecological examination normal (349714067404677) Routine gynecological examination (V72.31) Active confirmed Problem Screening for malignant neoplasm of colon (200726259) Special screening for malignant neoplasms, colon (V76.51) Active confirmed Major Vital Signs Temperature 97.8 degrees Fahrenheit 01/30/2024 Blood pressure diastolic 100 mm Hg 01/30/2024 Height 62 in 01/30/2024 Blood pressure systolic 140 mm Hg 01/30/2024 Weight 186 lbs 01/30/2024 BMI 34.02 kg/m2 01/30/2024 Encounters Encounter Location Date Provider Diagnosis [address] [address] 01/30/2024 Cecille Mendez Encounter for gynecological examination (general) (routine) without [...] PAP TESTS SINCE THEN. Plan Of Treatment Pending Test Test Name Order Date MAMMOGRAM, SCREENING 09/02/2014 MAMMOGRAM, SCREENING 01/09/2020 MAMMOGRAM, SCREENING 01/14/2021 MAMMOGRAM, SCREENING 01/18/2022 MAMMOGRAM, SCREENING 01/24/2023 MAMMOGRAM, SCREENING 01/30/2024 Urinalysis 01/06/2019 VITAMIN D 09/02/2014 1,25OH VITAMIN D 03/17/2015 1,25OH VITAMIN D 08/11/2015 COMPLETE BLOOD COUNT 03/17/2015 ESTRADIOL 09/02/2014 FSH 09/02/2014 IRON & TIBC 03/17/2015 LH 09/02/2014 THIN PREP,HPV,MAU IF HPV+ (>29YR)(SCRN) 10/16/2017 BONE DENSITY 01/30/2024 BONE DENSITY 10/16/2017 MM Digital Mammo Screening 10/16/2017 MM Digital Mammo Screening 01/09/2020 MM Digital Mammo Screening 01/14/2021 MM Digital Mammo Screening 01/24/2023 MM Digital Mammo Screening 01/18/2022 MM Digital Mammo Screening 01/30/2024 Next Appt Details Provider Name:Cecille Stiles Heathyvette blake, 01/30/2025 08:50:00 AM, [address], [address], [place], [address], Insurance Providers Payer Name Payer Address Payer Phone Subscriber Number Group Number Insured Name Patient Relationship to Insured Coverage Start Date Coverage End Date [employer] [place] [address] [place] [address] [id number] CLAUDE CALLE Self - patient is the insured Medical (General) History Medical History History ICD Code Pyonephrosis N13.6 Unspecified osteoarthritis, unspecified site M19.90 Essential (primary) hypertension I10 Calculus of kidney N20.0 Multiple sclerosis G35 Vitamin D deficiency, unspecified E55.9 Menopausal and female climacteric states N95.1 Anemia, unspecified D64.9 Unspecified urinary incontinence R32 Postmenopausal atrophic vaginitis N95.2 Unspecified abnormal cytological finding s in specimens from cervix uteri R87.619 Surgical History Surgery Date(Month/Year) Colonoscopy Colposcopy Lithotripsy Lithotripsy Kidney Stone 02/2016 Hospitalization History Reason Date(Month/Year) 1 Vaginal Delivery
--- OUTSIDE RECORDS SUMMARY | 2024-09-15 07:47 | XMS_ITS | Data Portability ---
Author Organization [facility] [employer] Address [address] [place] [address] [place] [address] Care Team Providers Care Information Assoc Name Role Phone YOMI WALKER Referring Provider YOMI ACEVEDO Primary Care Provider Assessment Encounter Date Assessment Date Assessment LastModified by Organization Details LastModified Time 04/09/2023 04/09/2023 IMPRESSION: Multiple sclerosis, with no relapses since June 2011, with worsened speech during that relapse better after starting Gilenya January 2012. --August 16, 2021 & repeat September CBC with absolute lymphocyte count 0.2? 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 [facility], compared to previous study December 17, 2019: No new definite lesions or enhancing lesions. Manageable regions of increased FLAIR/T2 signal throughout supratentorial white matter and corpus callosum; several are T1 hypointense; none exhibit restricted diffusion. They report no normal enhancement. 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 LABORATORIES February 28 2023, hepatitis Be antibody negative, Hepatitis B core body negative, hepatitis B antigen negative October 03, 2022 JCV antibody positive with index 0.91, CBC CBC WBC 3.5 and absolute lymphocyte count 0.2, both low We discussed the unchanging multiple sclerosis lesions. We discussed that the venous anomaly is benign. She remained firm on her desire to start ocrelizumab. A friend of hers has a relative who is on it and has even had more energy. She is up-to-date on COVID vaccination and shingles vaccination and flu vaccination. I agree with primary care that she should move toward our CV vaccination. She should make sure all vaccinations are 3 weeks old before she has her ocrelizumab infusion. She will work with our front office on timing. More generally: ctober 2022 She feels well and there are no active lesions or recent change on recent brain MRI December 17, 2019 (or the previous one before that: MRI December 12, 2017 compared to previous study October 19, 2014. ) Reduced absolute lymphocyte count is a normal finding in the context of Gilenya, and is thought due to sequestered lymphocytes, rather than loss of lymphocytes or loss of lymphocyte function. August 2021: We will remember claustrophobia with MRI: A technologist at the MRI Center at most recent brain MRI did not adjust the mirror correctly and she had claustrophobia. We agreed that I would prescribe Ativan at all imaging in the future so of such an event occurs she at least has a backup. BACK PAIN:August 2021 most recently discussed: She had historical right lower back pain. For this, and her right lower extremity dysesthesia, electrodiagnostic studies in December 2011 have reflected a mild abnormality suggestive but not diagnostic of right mid lumbar active radiculopathy. In the context of the patient's previous right-sided back pain spreading to the buttocks, and her report of right L3-L4 disc herniation, there is reasonable possibility that there was transient worsening of disc herniation which caused mild acute denervation and her pain. As there are no reflex changes and there is no definite weakness (right hip flexor remains strong today, and previous 5 minus reflected uncertain weakness as there was pain with this maneuver)., it makes sense to continue with home exercises learned from physical therapy, with no further change in management. previous issues: She has previously mentioned pinkeye every few months in recent years but not today, and she had shingles reinfection May 2015. There is theoretical correlation of increased risk for infection for any immunomodulatory medication. However, there was no increase risk of infection found in phase 3 studies for Gilenya. We have discussed this. Vitamin D was borderline low at and 2015. She has D2 supplementation I had asked her to take 6000 units of vitamin D 3 she had previously been taking 4000 units. Nephrology has asked her to switch to q. OD so I presume that vitamin D level was slightly high. Vitamin D deficiency has some correlation with multiple sclerosis disease activity which is why I have an interest from the neurological perspective. I will continue to defer to primary care and now also to nephrology for monitoring. PLAN Ana Laura Graham April 09, 2023 PENDING: FIRST Ocreluzemab infusion CONTINUE Gilenya until you start Ocrevus with first infusion CONTINUE: Home exercises learned from physical therapy April 2016 to keep your hamstring strong. Home exercises from Physical therapy for right sided back pain. CONTINUE Vitamin D and iron supplementation under guidance of primary care and nephrology. Followup after 1st Ocreluzemab infusions [email or web address] Not available 04/09/2023 08:37:40 05/31/2023 05/31/2023 IMPRESSION: Multiple sclerosis, Ocrelizumab started May 21, 2023, with no relapses since June 2011, with worsened speech during that relapse better after starting Gilenya January 2012. --August 16, 2021 & repeat September CBC with absolute lymphocyte count 0.2? l ow --March 09, 2015 JCV antibody negative --October 03, 2022 JCV antibody positive with index 0.91, -Brain MRI March 22, 2023 No new definite lesions or enhancing lesions -February 28 2023, hepatitis Be antibody negative, Hepatitis B core body negative, hepatitis B antigen negative --October 03, 2022 CBC CBC WBC 3.5 and absolute lymphocyte count 0.2, both low ? J anuary 2023May 21, 2023 first (50%) ocrelizumab infusion with mild postinfusion effects? b ut including of the labs and mild cough. Infusion reaction is sufficiently mild so that she can continue with the medication. I reassured her that a serious reaction is unusual. Yet, I reinforced her understanding that should she have any problems breathing or feeling of abnormality in her throat in the days following infusion, she should call 911. April 09, 2024: Path toward switching from Gilenya to ocrelizumab: JCV antibody positivity has emerged. Gilenya has a small but nonzero association with PML in the context of positive JCV antibody. We discussed the unchanging multiple sclerosis lesions. We discussed that the venous anomaly is benign. She remained firm on her desire to start ocrelizumab. A friend of hers has a relative who is on it and has even had more energy. She is up-to-date on COVID vaccination and shingles vaccination and flu vaccination. I agree with primary care that she should move toward our R CV vaccination. She should make sure all vaccinations are 3 weeks old before she has her ocrelizumab infusion. She will work with our front office on timing. More generally: February 28, 2023 She feels well and there are no active lesions or recent change on recent brain MRI December 17, 2019 (or the previous one before that: MRI December 12, 2017 compared to previous study October 19, 2014. ) Reduced absolute lymphocyte count is a normal finding in the context of Gilenya, and is thought due to sequestered lymphocytes, rather than loss of lymphocytes or loss of lymphocyte function. August 2021: We will remember claustrophobia with MRI: A technologist at the MRI Center at most recent brain MRI did not adjust the mirror correctly and she had claustrophobia. We agreed that I would prescribe Ativan at all imaging in the future so of such an event occurs she at least has a backup. BACK PAIN:August 2021 most recently discussed: She had historical right lower back pain. For this, and her right lower extremity dysesthesia, electrodiagnostic studies in December 2011 have reflected a mild abnormality suggestive but not diagnostic of right mid lumbar active radiculopathy. In the context of the patient's previous right-sided back pain spreading to the buttocks, and her report of right L3-L4 disc herniation, there is reasonable possibility that there was transient worsening of disc herniation which caused mild acute denervation and her pain. As there are no reflex changes and there is no definite weakness (right hip flexor remains strong today, and previous 5 minus reflected uncertain weakness as there was pain with this maneuver)., it makes sense to continue with home exercises learned from physical therapy, with no further change in management. previous issues: She has previously mentioned pinkeye every few months in recent years but not today, and she had shingles reinfection May 2015. There is theoretical correlation of increased risk for infection for any immunomodulatory medication. However, there was no increase risk of infection found in phase 3 studies for Gilenya. We have discussed this. Vitamin D was borderline low at and 2015. She has D2 supplementation I had asked her to take 6000 units of vitamin D 3 she had previously been taking 4000 units. Nephrology has asked her to switch to q. OD so I presume that vitamin D level was slightly high. Vitamin D deficiency has some correlation with multiple sclerosis disease activity which is why I have an interest from the neurological perspective. I will continue to defer to primary care and now also to nephrology for monitoring. [place] Jesusis Ana Laura May 31, 2023 PENDING: Second 50% of first ocrelizumab infusion June 04, 2023, 2 weeks after first infusion 50%. CONTINUE: Home exercises learned from physical therapy April 2016 to keep your hamstring strong. Home exercises from Physical therapy for right sided back pain. CONTINUE Vitamin D and iron supplementation under guidance of primary care and nephrology. Followup 5 months [email or web address] Not available 05/31/2023 08:36:58 10/24/2023 10/24/2023 IMPRESSION: Multiple sclerosis, Ocrelizumab started May 21, 2023, with no relapses since June 2011, with worsened speech during that relapse better after starting Gilenya January 2012. --August 16, 2021 & repeat September CBC with absolute lymphocyte count 0.2? l ow --March 09, 2015 JCV antibody negative --October 03, 2022 JCV antibody positive with index 0.91, -Brain MRI March 22, 2023 No new definite lesions or enhancing lesions -February 28 2023, hepatitis Be antibody negative, Hepatitis B core body negative, hepatitis B antigen negative --October 03, 2022 CBC CBC WBC 3.5 and absolute lymphocyte count 0.2, both low ? J anuary 2023May 21, 2023 first (50%) ocrelizumab infusion with mild postinfusion effects? b ut including puffiness of lips and mild cough. ? J [facility] 2023 5 months status post ocrelizumab infusion set #1, feeling more energy and more ease of movement, mild brief lip swelling infusion reaction. >>>>>>>>>>>>October 24, 2023 We will send CD19/CD20 laboratory assays to see if these antibodies are reconstituted. This will be a sign for infusion #2. This usually takes somewhere between 8-14 months. Ocrelizumab increases the risk of more serious COVID symptoms during COVID infection. A new booster is due out this fall. We discussed that I will ask her to get the COVID booster before ocrelizumab infusion set #2. >>>>>>>>>>>>May 31, 2023 Infusion reaction is sufficiently mild so that she can continue with the medication. I reassured her that a serious reaction is unusual. Yet, I reinforced her understanding that should she have any problems breathing or feeling of abnormality in her throat in the days following infusion, she should call 911. April 09, 2024: Path toward switching from Gilenya to ocrelizumab: JCV antibody positivity has emerged. Gilenya has a small but nonzero association with PML in the context of positive JCV antibody. We discussed the unchanging multiple sclerosis lesions. We discussed that the venous anomaly is benign. She remained firm on her desire to start ocrelizumab. A friend of hers has a relative who is on it and has even had more energy. She is up-to-date on COVID vaccination and shingles vaccination and flu vaccination. I agree with primary care that she should move toward our R CV vaccination. She should make sure all vaccinations are 3 weeks old before she has her ocrelizumab infusion. She will work with our front office on timing. More generally: February 28, 2023 She feels well and there are no active lesions or recent change on recent brain MRI December 17, 2019 (or the previous one before that: MRI December 12, 2017 compared to previous study October 19, 2014. ) Reduced absolute lymphocyte count is a normal finding in the context of Gilenya, and is thought due to sequestered lymphocytes, rather than loss of lymphocytes or loss of lymphocyte function. August 2021: We will remember claustrophobia with MRI: A technologist at the MRI Center at most recent brain MRI did not adjust the mirror correctly and she had claustrophobia. We agreed that I would prescribe Ativan at all imaging in the future so of such an event occurs she at least has a backup. BACK PAIN:August 2021 most recently discussed: She had historical right lower back pain. For this, and her right lower extremity dysesthesia, electrodiagnostic studies in December 2011 have reflected a mild abnormality suggestive but not diagnostic of right mid lumbar active radiculopathy. In the context of the patient's previous right-sided back pain spreading to the buttocks, and her report of right L3-L4 disc herniation, there is reasonable possibility that there was transient worsening of disc herniation which caused mild acute denervation and her pain. As there are no reflex changes and there is no definite weakness (right hip flexor remains strong today, and previous 5 minus reflected uncertain weakness as there was pain with this maneuver)., it makes sense to continue with home exercises learned from physical therapy, with no further change in management. previous issues: She has previously mentioned pinkeye every few months in recent years but not today, and she had shingles reinfection May 2015. There is theoretical correlation of increased risk for infection for any immunomodulatory medication. However, there was no increase risk of infection found in phase 3 studies for Gilenya. We have discussed this. Vitamin D was borderline low at and 2015. She has D2 supplementation I had asked her to take 6000 units of vitamin D 3 she had previously been taking 4000 units. Nephrology has asked her to switch to q. OD so I presume that vitamin D level was slightly high. Vitamin D deficiency has some correlation with multiple sclerosis disease activity which is why I have an interest from the neurological perspective. I will continue to defer to primary care and now also to nephrology for monitoring. Ana Laura Ramsay May 31, 2023 CD19/CD20 laboratory assays We will call you when we are assured that [facility] has correctly received our order for laboratory assays. You will contact us as soon as you have done the blood work. If CD19/CD20 antibodies are reconstituted we will call you to come in to discuss the situation. Otherwise follow-up as detailed below. CONTINUE: Home exercises learned from physical therapy April 2016 to keep your hamstring strong. Home exercises from Physical therapy for right sided back pain. CONTINUE Vitamin D and iron supplementation under guidance of primary care and nephrology. Followup 3 months [email or web address] Not available 10/24/2023 09:17:09 01/16/2024 01/16/2024 IMPRESSION: Multiple sclerosis, Ocrelizumab started May 21, 2023, with no relapses since June 2011, with worsened speech during that relapse better after starting Gilenya January 2012. --August 16, 2021 & repeat September CBC with absolute lymphocyte count 0.2? l ow --March 09, 2015 JCV antibody negative --October 03, 2022 JCV antibody positive with index 0.91, -Brain MRI March 22, 2023 No new definite lesions or enhancing lesions -February 28 2023, hepatitis B antibody negative, Hepatitis B core body negative, hepatitis B antigen negative --October 03, 2022 CBC CBC WBC 3.5 and absolute lymphocyte count 0.2, both low ? J anuary 2023May 21, 2023 first (50%) ocrelizumab infusion with mild postinfusion effects? b ut including puffiness of lips and mild cough. ? J 2023 5 months status post ocrelizumab infusion set #1, feeling more energy and more ease of movement, mild brief lip swelling infusion reaction. --January 16, 2024 8 months status post ocrelizumab infusion #1, doing well, CD19/CD20 not reconstituted >>>>>>>>>>>>Sept2023 We will again send CD19/CD20 laboratory assays; B-cell reconstitution usually takes 8-14 months. Vaccines are best done when the B cells are reconstituted. We would then move toward ocrelizumab infusion #2. Vaccine of particular interest is the new COVID booster as COVID statistically presents more seriously with individuals on ocrelizumab. I defer to primary care for determining any overriding reasons for her to get this or other vaccines? s uch as flu vaccine? s ooner. She has had Shingrix vaccine. >>>>>>>>>>>>October 24, 2023 We will send CD19/CD20 laboratory assays to see if these antibodies are reconstituted. This will be a sign for infusion #2. This usually takes somewhere between 8-14 months. Ocrelizumab increases the risk of more serious COVID symptoms during COVID infection. A new booster is due out this fall. We discussed that I will ask her to get the COVID booster before ocrelizumab infusion set #2. >>>>>>>>>>>>May 31, 2023 Infusion reaction is sufficiently mild so that she can continue with the medication. I reassured her that a serious reaction is unusual. Yet, I reinforced her understanding that should she have any problems breathing or feeling of abnormality in her throat in the days following infusion, she should call 911. 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 We discussed the unchanging multiple sclerosis lesions. We discussed that the venous anomaly is benign. She remained firm on her desire to start ocrelizumab. A friend of hers has a relative who is on it and has even had more energy. She is up-to-date on COVID vaccination and shingles vaccination and flu vaccination. I agree with primary care that she should move toward our R CV vaccination. She should make sure all vaccinations are 3 weeks old before she has her ocrelizumab infusion. She will work with our front office on timing. More generally: February 28, 2023 She feels well and there are no active lesions or recent change on recent brain MRI December 17, 2019 (or the previous one before that: MRI December 12, 2017 compared to previous study October 19, 2014. ) Reduced absolute lymphocyte count is a normal finding in the context of Sadi, and is thought due to sequestered lymphocytes, rather than loss of lymphocytes or loss of lymphocyte function. August 2021: We will remember claustrophobia with MRI: A technologist at the MRI Center at most recent brain MRI did not adjust the mirror correctly and she had claustrophobia. We agreed that I would prescribe Ativan at all imaging in the future so of such an event occurs she at least has a backup. BACK PAIN:August 2021 most recently discussed: She had historical right lower back pain. For this, and her right lower extremity dysesthesia, electrodiagnostic studies in December 2011 have reflected a mild abnormality suggestive but not diagnostic of right mid lumbar active radiculopathy. In the context of the patient's previous right-sided back pain spreading to the buttocks, and her report of right L3-L4 disc herniation, there is reasonable possibility that there was transient worsening of disc herniation which caused mild acute denervation and her pain. As there are no reflex changes and there is no definite weakness (right hip flexor remains strong today, and previous 5 minus reflected uncertain weakness as there was pain with this maneuver)., it makes sense to continue with home exercises learned from physical therapy, with no further change in management. previous issues: She has previously mentioned pinkeye every few months in recent years but not today, and she had shingles reinfection May 2015. There is theoretical correlation of increased risk for infection for any immunomodulatory medication. However, there was no increase risk of infection found in phase 3 studies for Gilenya. We have discussed this. Vitamin D was borderline low at and 2015. She has D2 supplementation I had asked her to take 6000 units of vitamin D 3 she had previously been taking 4000 units. Nephrology has asked her to switch to q. OD so I presume that vitamin D level was slightly high. Vitamin D deficiency has some correlation with multiple sclerosis disease activity which is why I have an interest from the neurological perspective. I will continue to defer to primary care and now also to nephrology for monitoring. PLAN Ana Laura Graham January 16, 2024 CD19/CD20 laboratory assays Please call 1 week after you have done the laboratory assay to understand the results and any planning we might do should there be reconstitution of B cells. CONTINUE: Home exercises learned from physical therapy April 2016 to keep your hamstring strong. Home exercises from Physical therapy for right sided back pain. CONTINUE Vitamin D and iron supplementation under guidance of primary care and nephrology. Followup 3 months [email or web address] Not available 01/16/2024 08:29:30 04/23/2024 04/23/2024 IMPRESSION: Multiple sclerosis, Ocrelizumab s/p Infusion #1 May 21, 2023, with no relapses since June 2011, with worsened speech during that relapse better after starting Gilenya January 2012. --August 16, 2021 & repeat September CBC with absolute lymphocyte count 0.2? l ow --March 09, 2015 JCV antibody negative --October 03, 2022 JCV antibody positive with index 0.91, -Brain MRI March 22, 2023 No new definite lesions or enhancing lesions -February 28 2023, hepatitis B antibody negative, Hepatitis B core body negative, hepatitis B antigen negative --October 03, 2022 CBC CBC WBC 3.5 and absolute lymphocyte count 0.2, both low ? J anuary 2023May 21, 2023 first (50%) ocrelizumab infusion with mild postinfusion effects? b ut including puffiness of lips and mild cough. ? J une 2023 5 months status post ocrelizumab infusion set #1, feeling more energy and more ease of movement, mild brief lip swelling infusion reaction. --January 16, 2024 8 months status post ocrelizumab infusion #1, doing well, CD19/CD20 not reconstituted ? S aamir 2023 CD19 cells: 14%, CD20 cells: 14%, CBC normal, --April 23, 2024 no new or worsening MS symptomatology, CD cells reconstituted, already for infusion #2 of ocrelizumab. >>>>>>>>>>>>Decembe r 2023 She agrees to get COVID fall 2023 booster as soon as she can, along with the flu vaccine which she also wants. We will schedule ocrelizumab infusion minimum 3 weeks after vaccines. We will continue with breaking up the infusion into 2 infusions until such a time as she has no infusion reaction? s he had a mild infusion reaction May 21, 2023, but involved lip swelling and a little cough. We will time to follow-up CD4 cell counts for about 8 months? m y approximation of the earliest she will reconstitute given the lack of reconstitution September 2023 and the presence of reconstitution January 2024 context infusion May 21. >>>>>>>>>>>>Septemb 2023 We will again send CD19/CD20 laboratory assays; B-cell reconstitution usually takes 8-14 months. Vaccines are best done when the B cells are reconstituted. We would then move toward ocrelizumab infusion #2. Vaccine of particular interest is the new COVID booster as COVID statistically presents more seriously with individuals on ocrelizumab. I defer to primary care for determining any overriding reasons for her to get this or other vaccines? s uch as flu vaccine? s ooner. She has had Shingrix vaccine. >>>>>>>>>>>>October 24, 2023 We will send CD19/CD20 laboratory assays to see if these antibodies are reconstituted. This will be a sign for infusion #2. This usually takes somewhere between 8-14 months. Ocrelizumab increases the risk of more serious COVID symptoms during COVID infection. A new booster is due out this fall. We discussed that I will ask her to get the COVID booster before ocrelizumab infusion set #2. >>>>>>>>>>>>May 31, 2023 Infusion reaction is sufficiently mild so that she can continue with the medication. I reassured her that a serious reaction is unusual. Yet, I reinforced her understanding that should she have any problems breathing or feeling of abnormality in her throat in the days following infusion, she should call 911. 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 We discussed the unchanging multiple sclerosis lesions. We discussed that the venous anomaly is benign. She remained firm on her desire to start ocrelizumab. A friend of hers has a relative who is on it and has even had more energy. She is up-to-date on COVID vaccination and shingles vaccination and flu vaccination. I agree with primary care that she should move toward our R CV vaccination. She should make sure all vaccinations are 3 weeks old before she has her ocrelizumab infusion. She will work with our front office on timing. More generally: February 28, 2023 She feels well and there are no active lesions or recent change on recent brain MRI December 17, 2019 (or the previous one before that: MRI December 12, 2017 compared to previous study October 19, 2014. ) Reduced absolute lymphocyte count is a normal finding in the context of Gilenya, and is thought due to sequestered lymphocytes, rather than loss of lymphocytes or loss of lymphocyte function. August 2021: We will remember claustrophobia with MRI: A technologist at the MRI Center at most recent brain MRI did not adjust the mirror correctly and she had claustrophobia. We agreed that I would prescribe Ativan at all imaging in the future so of such an event occurs she at least has a backup. BACK PAIN:August 2021 most recently discussed: She had historical right lower back pain. For this, and her right lower extremity dysesthesia, electrodiagnostic studies in December 2011 have reflected a mild abnormality suggestive but not diagnostic of right mid lumbar active radiculopathy. In the context of the patient's previous right-sided back pain spreading to the buttocks, and her report of right L3-L4 disc herniation, there is reasonable possibility that there was transient worsening of disc herniation which caused mild acute denervation and her pain. As there are no reflex changes and there is no definite weakness (right hip flexor remains strong today, and previous 5 minus reflected uncertain weakness as there was pain with this maneuver)., it makes sense to continue with home exercises learned from physical therapy, with no further change in management. previous issues: She has previously mentioned pinkeye every few months in recent years but not today, and she had shingles reinfection May 2015. There is theoretical correlation of increased risk for infection for any immunomodulatory medication. However, there was no increase risk of infection found in phase 3 studies for Gilenya. We have discussed this. Vitamin D was borderline low at and 2015. She has D2 supplementation I had asked her to take 6000 units of vitamin D 3 she had previously been taking 4000 units. Nephrology has asked her to switch to q. OD so I presume that vitamin D level was slightly high. Vitamin D deficiency has some correlation with multiple sclerosis disease activity which is why I have an interest from the neurological perspective. I will continue to defer to primary care and now also to nephrology for monitoring. Ana Laura Ramsay April 23, 2024 COVID-vaccine and flu vaccine Ocrelizumab infusion, in two portions, 2 weeks apart, first part, at least 3 weeks after vaccines CD19/CD20 laboratory assays at the beginning of December? ~ 8 months after infusion #2. CONTINUE: Home exercises learned from physical therapy April 2016 to keep your hamstring strong. Home exercises from Physical therapy for right sided back pain. CONTINUE Vitamin D and iron supplementation under guidance of primary care and nephrology. Follow-up late December 2023 madhav Not available 04/23/2024 08:34:40 Plan of Treatment Reminders Order Date Submit Date Provider Last Modified By Organization Details Last Modified Time Details Appointments FOLLOW UP EXT 2024 08:00A Karen Canales MD PhD Not available Not available Not available Lab CBC w/ auto diff 2023 025 mrossen [facility] (Centralized Electronic Ordering - All Locations), Patient Can Go To The Location Of Their Choice, [id number] 04/23/2024 08:33:24 CD20 cells/10 0 CD19 cells, blood (OBS) 2023 025 mrossen [facility] (Centralized Electronic Ordering - All Locations), Patient Can Go To The Location Of Their Choice, [id number] 04/23/2024 08:33:24 CBC w/ auto diff 2023 024 SOULEYMANE [facility] (Centralized Electronic Ordering - All Locations), Patient Can Go To The Location Of Their Choice, [id number] 01/18/2024 15:07:41 CD20 cells/10 0 CD19 cells, blood (OBS) 2023 024 SOULEYMANE [facility] (Centralized Electronic Ordering - All Locations), Patient Can Go To The Location Of Their Choice, [id number] 01/18/2024 15:07:42 CBC w/ auto diff 2023 024 SOULEYMANE [facility] (Centralized Electronic Ordering - All Locations), Patient Can Go To The Location Of Their Choice, [id number] 10/26/2023 15:07:28 CD20 cells/10 0 CD19 cells, blood (OBS) 2023 024 SOULEYMANE [facility] (Centralized Electronic Ordering - All Locations), Patient Can Go To The Location Of Their Choice, [id number] 10/26/2023 15:07:29 Referral None recorded . Procedures None recorded . Surgeries None recorded . Imaging None recorded . Medication Orders None recorded . Patient TargetsNo targets recorded. Patient Instructions Encounter Date Encounter Id Patient Instructions Last Modified By Organization Details Last Modified Time 04/09/2023 [id number] PREVIOUS DISCUSS IONS We discussed that she has converted to positive in AME virus antibody presents. With AME virus antibody, she becomes at risk for PML in the context of treatment with Gilenya, although the risk is extremely low? i ncident rate ~3.12/100,000 patient years. (Neurology 2017September 25; 90(20): e1815? e 1821. [id number]). I suggest that we switch from Gilenya. She would like a stronger medication. Among the tier of medications that provide multiple sclerosis disease modifying benefit, ocrelizumab may have the least risk of PML. Through April 2021, there were no cases of PML with ocrelizumab as the only immunomodulatory associated medication. In April 2021 there was a case that was considered possibly associated with ocrelizumab. In September 2022, there was a case more definitively associated with ocrelizumab. Thus, although the incidence is even lower than for Gilenya, it is not zero. https://www.[employer]/content/ dam/gene/ocrelizumab info/pdfs/progressiv t-nioflzfblq-vegftco cephalopathy.pdf (450,000 patient years and more than 225,000 patients, August, statistic from the drop hammer setter up, [employer]). When we discussed ocrelizumab, I did not know of the September 2022 case. We decided to do the preparatory blood work to start ocrelizumab and follow-up, with our front office working on preauthorization the meanwhile. At follow-up, I will discuss the 2022 case. I do not know of a multiple sclerosis disease modifying medication that is considered one of the stronger once that has absolutely no data of association with PML. We will decide whether she wishes to go forward with ocrelizumab, or to move toward another medication, perhaps not as strong, but with no association with PML. Aubagio is one such medication. Chronic illness that poses a threat to bodily function; drug therapy requiring intensive monitoring for toxicity madhav Not available 04/09/2023 08:35:15 05/31/2023 [id number] PREVIOUS DISCUSS IONS We discussed that she has converted to positive in AME virus antibody presents. With AME virus antibody, she becomes at risk for PML in the context of treatment with Gilenya, although the risk is extremely low? i ncident rate ~3.12/100,000 patient years. (Neurology 2017 15; 90(20): e1815? e 1821. [id number]). I suggest that we switch from Gilenya. She would like a stronger medication. Among the tier of medications that provide multiple sclerosis disease modifying benefit, ocrelizumab may have the least risk of PML. Through April 2021, there were no cases of PML with ocrelizumab as the only immunomodulatory associated medication. In April 2021 there was a case that was considered possibly associated with ocrelizumab. In September 2022, there was a case more definitively associated with ocrelizumab. Thus, although the incidence is even lower than for Gilenya, it is not zero. https://www.I[employer]ream/content/ dam/gene/ocrelizumab info/pdfs/progressiv e-cxcscktwdz-loicwfb cephalopathy.pdf (450,000 patient years and more than 225,000 patients, August, statistic from the drop hammer setter up, [employer]). When we discussed ocrelizumab, I did not know of the September 2022 case. We decided to do the preparatory blood work to start ocrelizumab and follow-up, with our front office working on preauthorization the meanwhile. At follow-up, I will discuss the 2022 case. I do not know of a multiple sclerosis disease modifying medication that is considered one of the stronger once that has absolutely no data of association with PML. We will decide whether she wishes to go forward with ocrelizumab, or to move toward another medication, perhaps not as strong, but with no association with PML. Aubagio is one such medication. 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 With AME virus antibody, she becomes at risk for PML in the context of treatment with Gilenya, although the risk is extremely low? i ncident rate ~3.12/100,000 patient years. (Neurology 2017 15; 90(20): e1815? e 1821. [id number]). I suggest that we switch from Gilenya. She would like a stronger medication. Among the tier of medications that provide multiple sclerosis disease modifying benefit, ocrelizumab may have the least risk of PML. Through April 2021, there were no cases of PML with ocrelizumab as the only immunomodulatory associated medication. In April 2021 there was a case that was considered possibly associated with ocrelizumab. In September 2022, there was a case more definitively associated with ocrelizumab. Thus, although the incidence is even lower than for Gilenya, it is not zero. https://www.[employer].com/content/ dam/gene/ocrelizumab info/pdfs/progressiv j-iqjdtxqwef-szjhuwi cephalopathy.pdf (450,000 patient years and more than 225,000 patients, August, statistic from the drop hammer setter up, [employer]). When we discussed ocrelizumab, I did not know of the September 2022 case. We decided to do the preparatory blood work to start ocrelizumab and follow-up, with our front office working on preauthorization the meanwhile. At follow-up, I will discuss the 2022 case. I do not know of a multiple sclerosis disease modifying medication that is considered one of the stronger once that has absolutely no data of association with PML. We will decide whether she wishes to go forward with ocrelizumab, or to move toward another medication, perhaps not as strong, but with no association with PML. Aubagio is one such medication. 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 With AME virus antibody, she becomes at risk for PML in the context of treatment with Gilenya, although the risk is extremely low? i ncident rate ~3.12/100,000 patient years. (Neurology 2018 September 25; 90(20): e1815? e 1821. [id number]). I suggest that we switch from Gilenya. She would like a stronger medication. Among the tier of medications that provide multiple sclerosis disease modifying benefit, ocrelizumab may have the least risk of PML. Through April 2021, there were no cases of PML with ocrelizumab as the only immunomodulatory associated medication. In April 2021 there was a case that was considered possibly associated with ocrelizumab. In September 2022, there was a case more definitively associated with ocrelizumab. Thus, although the incidence is even lower than for Gilenya, it is not zero. https://www.[employer].com/content/ dam/gene/ocrelizumab info/pdfs/progressiv r-vigfxhugoz-tqkdkkl cephalopathy.pdf (450,000 patient years and more than 225,000 patients, August, statistic from the drop hammer setter up, [employer]). When we discussed ocrelizumab, I did not know of the September 2022 case. We decided to do the preparatory blood work to start ocrelizumab and follow-up, with our front office working on preauthorization the meanwhile. At follow-up, I will discuss the 2022 case. I do not know of a multiple sclerosis disease modifying medication that is considered one of the stronger once that has absolutely no data of association with PML. We will decide whether she wishes to go forward with ocrelizumab, or to move toward another medication, perhaps not as strong, but with no association with PML. Aubagio is one such medication. Chronic illness that poses a threat to bodily function; drug therapy requiring intensive monitoring for toxicity madhav Not available 01/16/2024 07:59:59 04/23/2024 [id number] PREVIOUS DISCUSS IONS We discussed that she has converted to positive in AME virus antibody presents. With AME virus antibody, she becomes at risk for PML in the context of treatment with Gilenya, although the risk is extremely low? i ncident rate ~3.12/100,000 patient years. (Neurology 2018 September 15; 90(20): e1815? e 1821. [id number]). I suggest that we switch from Gilenya. She would like a stronger medication. Among the tier of medications that provide multiple sclerosis disease modifying benefit, ocrelizumab may have the least risk of PML. Through April 2021, there were no cases of PML with ocrelizumab as the only immunomodulatory associated medication. In April 2021 there was a case that was considered possibly associated with ocrelizumab. In September 2022, there was a case more definitively associated with ocrelizumab. Thus, although the incidence is even lower than for Gilenya, it is not zero. https://www.[employer].com/content/ dam/gene/ocrelizumab info/pdfs/progressiv e-kynpzeizsm-qwgwihj cephalopathy.pdf (450,000 patient years and more than 225,000 patients, August, statistic from the drop hammer setter up, [employer]). When we discussed ocrelizumab, I did not know of the September 2022 case. We decided to do the preparatory blood work to start ocrelizumab and follow-up, with our front office working on preauthorization the meanwhile. At follow-up, I will discuss the 2022 case. I do not know of a multiple sclerosis disease modifying medication that is considered one of the stronger once that has absolutely no data of association with PML. We will decide whether she wishes to go forward with ocrelizumab, or to move toward another medication, perhaps not as strong, but with no association with PML. Aubagio is one such medication. Chronic illness that poses a threat to bodily function; drug therapy requiring intensive monitoring for toxicity mrossen Not available 04/23/2024 08:10:44 Reason for Referral None Reported. Results Created Date Observation Date Name Description Value Unit Range Abnormal Flag Note LastModifiedBy Organization Detail LastModifiedTime 10/24/1910/24/2023 CBC WITH DIFFE RENTI AL/PL ATELE T WBC 4.3 x10e3 /uL 3.4-10 .8 Not Available [facility] ([facility]) [address] [place], [address], 10/26/2023 15:07:28 10/24/19 24 10/24/2023 CBC WITH DIFFE RENTI AL/PL ATELE T RBC 4.12 x10e6 /uL 3.77-5 .28 Not Available [facility] ([facility]) [address] [place], [address], 10/26/2023 15:07:28 10/24/19 24 10/24/2023 CBC WITH DIFFE RENTI AL/PL ATELE T hemoglobin 12.5 g/dL 11.1-1 5.9 Not Available [facility] ([facility]) [address] [place], [address], 10/26/2023 15:07:28 10/24/19 24 10/24/2023 CBC WITH DIFFE RENTI AL/PL ATELE T hematocrit 38.3 % 34.0-4 6.6 Not Available [facility] ([facility]) [address] [place], [address], 10/26/2023 15:07:28 10/24/19 24 10/24/2023 CBC WITH DIFFE RENTI AL/PL ATELE T MCV 93 fL 79-97 Not Available [facility] ([facility]) [address] [place], [address], 10/26/2023 15:07:28 10/24/19 24 10/24/2023 CBC WITH DIFFE RENTI AL/PL ATELE T MCH 30.3 pg 26.6-3 3.0 Not Available [facility] ([facility]) [address] [facility], [place], [address], 10/26/2023 15:07:28 10/24/19 24 10/24/2023 CBC WITH DIFFE RENTI AL/PL ATELE T MCHC 32.6 g/dL 31.5-3 5.7 Not Available [facility] ([facility]) [address] [place], [address], 10/26/2023 15:07:28 10/24/19 24 10/24/2023 CBC WITH DIFFE RENTI AL/PL ATELE T RDW 13.0 % 11.7-1 5.4 Not Available [facility] ([facility]) [address] [place], [address], 10/26/2023 15:07:28 10/24/19 24 10/24/2023 CBC WITH DIFFE RENTI AL/PL ATELE T platelets 367 x10e3 /uL 150-45 0 Not Available [facility] ([facility]) [address] [facility], [place], [address], 10/26/2023 15:07:28 10/24/19 24 10/24/2023 CBC WITH DIFFE RENTI AL/PL ATELE T neutrophils 64 % not estab. Not Available [facility] ([facility]) [address] [place], [address], 10/26/2023 15:07:28 10/24/19 24 10/24/2023 CBC WITH DIFFE RENTI AL/PL ATELE T lymphs 16 % not estab. Not Available [facility] ([facility]) [address] [place], [address], 10/26/2023 15:07:28 10/24/19 24 10/24/2023 CBC WITH DIFFE RENTI AL/PL ATELE T monocytes 16 % not estab. Not Available [facility] ([facility]) [address] [place], [address], 10/26/2023 15:07:28 10/24/19 24 10/24/2023 CBC WITH DIFFE RENTI AL/PL ATELE T eos 3 % not estab. Not Available [facility] ([facility]) [address] [facility], [place], [address], 10/26/2023 15:07:28 10/24/19 24 10/24/2023 CBC WITH DIFFE RENTI AL/PL ATELE T basos 1 % not estab. Not Available [facility] (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) [address] [place], [address], 10/26/2023 15:07:28 10/24/19 24 10/24/2023 CBC WITH DIFFE RENTI AL/PL ATELE T neutrophils (absolute) 2.8 x10e3 /uL 1.4-7. 0 Not Available [facility] ([facility]) [address] [place], [address], 10/26/2023 15:07:28 10/24/19 24 10/24/2023 CBC WITH DIFFE RENTI AL/PL ATELE T lymphs (absolute) 0.7 x10e3 /uL 0.7-3. 1 Not Available [facility] ([facility]) [address] [facility], [place], [address], 10/26/2023 15:07:28 10/24/19 24 10/24/2023 CBC WITH DIFFE RENTI AL/PL ATELE T monocytes(ab solute) 0.7 x10e3 /uL 0.1-0. 9 Not Available [facility] ([facility]) [address] [facility], [place], [address], 10/26/2023 15:07:28 10/24/19 24 10/24/2023 CBC WITH DIFFE RENTI AL/PL ATELE T eos (absolute) 0.1 x10e3 /uL 0.0-0. 4 Not Available [facility] ([facility]) [address] [facility], [place], [address], 10/26/2023 15:07:28 10/24/19 24 10/24/2023 CBC WITH DIFFE RENTI AL/PL ATELE T baso (absolute) 0.0 x10e3 /uL 0.0-0. 2 Not Available [facility] ([facility]) [address] [facility], [place], [address], 10/26/2023 15:07:28 10/24/19 24 10/24/2023 CBC WITH DIFFE RENTI AL/PL ATELE T immature granulocytes 0 % not estab. Not Available [facility] ([facility]) [address] [place], [address], 10/26/2023 15:07:28 10/24/19 24 10/24/2023 CBC WITH DIFFE RENTI AL/PL ATELE T immature grans (abs) 0.0 x10e3 /uL 0.0-0. 1 Not Available [facility] ([facility]) [address] [facility], [place], [address], 10/26/2023 15:07:28 10/24/19 24 10/24/2023 CBC WITH DIFFE RENTI AL/PL ATELE T NRBC SWITCHMAN SUPERVISOR Not Available [facility] ([facility]) [address] [facility], [place], [address], 10/26/2023 15:07:28 10/24/19 24 10/24/2023 CBC WITH DIFFE RENTI AL/PL ATELE T hematology comments: SWITCHMAN SUPERVISOR Not Available [facility] ([facility]) [address] [facility], [place], [address], 10/26/2023 15:07:28 10/24/19 24 10/26/2023 CD20 B CELLS % cd19-B cells 0.4 % 4.6-22 .1 below low normal Not Available [facility] ([facility]) [address] [facility], [place], [address], 10/26/2023 15:07:29 10/24/19 24 10/26/2023 CD20 B CELLS % cd20-B cells 0.4 % 5.0-22 .3 below low normal Not Available [facility] ([facility]) [address] [place], [address], 10/26/2023 15:07:29 01/16/20 24 01/17/2024 CBC WITH DIFFE RENTI AL/PL ATELE T WBC 5.1 x10e3 /uL 3.4-10 .8 normal Not Available [facility] ([facility]) [address] [place], [address], 01/18/2024 15:07:40 01/16/20 24 01/17/2024 CBC WITH DIFFE RENTI AL/PL ATELE T RBC 4.21 x10e6 /uL 3.77-5 .28 normal Not Available [facility] ([facility]) [address] [facility], [place], [address], 01/18/2024 15:07:40 01/16/20 24 01/17/2024 CBC WITH DIFFE RENTI AL/PL ATELE T hemoglobin 12.9 g/dL 11.1-1 5.9 normal Not Available [facility] ([facility]) [address] [facility], [place], [address], 01/18/2024 15:07:40 01/16/20 24 01/17/2024 CBC WITH DIFFE RENTI AL/PL ATELE T hematocrit 40.0 % 34.0-4 6.6 normal Not Available [facility] ([facility]) [address] [facility], [place], [address], 01/18/2024 15:07:40 01/16/20 24 01/17/2024 CBC WITH DIFFE RENTI AL/PL ATELE T MCV 95 fL 79-97 normal Not Available [facility] ([facility]) [address] [facility], [place], [address], 01/18/2024 15:07:40 01/16/20 24 01/17/2024 CBC WITH DIFFE RENTI AL/PL ATELE T MCH 30.6 pg 26.6-3 3.0 normal Not Available [facility] ([facility]) [address] [place], [address], 01/18/2024 15:07:40 01/16/20 24 01/17/2024 CBC WITH DIFFE RENTI AL/PL ATELE T MCHC 32.3 g/dL 31.5-3 5.7 normal Not Available [facility] ([facility]) [address] [place], [address], 01/18/2024 15:07:40 01/16/20 24 01/17/2024 CBC WITH DIFFE RENTI AL/PL ATELE T RDW 12.9 % 11.7-1 5.4 Not Available [facility] ([facility]) [address] [facility], [place], [address], 01/18/2024 15:07:40 01/16/20 24 01/17/2024 CBC WITH DIFFE RENTI AL/PL ATELE T platelets 368 x10e3 /uL 150-45 0 normal Not Available [facility] ([facility]) [address] [facility], [place], [address], 01/18/2024 15:07:40 01/16/20 24 01/17/2024 CBC WITH DIFFE RENTI AL/PL ATELE T neutrophils 68 % not estab. normal Not Available [facility] ([facility]) [address] [facility], [place], [address], 01/18/2024 15:07:40 01/16/20 24 01/17/2024 CBC WITH DIFFE RENTI AL/PL ATELE T lymphs 16 % not estab. normal Not Available [facility] ([facility]) [address] [facility], [place], [address], 01/18/2024 15:07:40 01/16/20 24 01/17/2024 CBC WITH DIFFE RENTI AL/PL ATELE T monocytes 11 % not estab. normal Not Available [facility] ([facility]) [address] [facility], [place], [address], 01/18/2024 15:07:40 01/16/20 24 01/17/2024 CBC WITH DIFFE RENTI AL/PL ATELE T eos 4 % not estab. normal Not Available [facility] ([facility]) [address] [facility], [place], [address], 01/18/2024 15:07:40 01/16/20 24 01/17/2024 CBC WITH DIFFE RENTI AL/PL ATELE T basos 1 % not estab. normal Not Available [facility] ([facility]) [address] [facility], [place], [address], 01/18/2024 15:07:40 01/16/20 24 01/17/2024 CBC WITH DIFFE RENTI AL/PL ATELE T immature cells [employer]ITCHMAN SUPER[employer]OR Not Available [facility] ([facility]) [address] [facility], [place], [address], 01/18/2024 15:07:40 01/16/20 24 01/17/2024 CBC WITH DIFFE RENTI AL/PL ATELE T neutrophils (absolute) 3.4 x10e3 /uL 1.4-7. 0 normal Not Available [facility] ([facility]) [address] [facility], [place], [address], 01/18/2024 15:07:40 01/16/20 24 01/17/2024 CBC WITH DIFFE RENTI AL/PL ATELE T lymphs (absolute) 0.8 x10e3 /uL 0.7-3. 1 normal Not Available [facility] ([facility]) [address] [place], [address], 01/18/2024 15:07:40 01/16/20 24 01/17/2024 CBC WITH DIFFE RENTI AL/PL ATELE T monocytes(ab solute) 0.6 x10e3 /uL 0.1-0. 9 normal Not Available [facility] ([facility]) [address] [place], [address], 01/18/2024 15:07:40 01/16/20 24 01/17/2024 CBC WITH DIFFE RENTI AL/PL ATELE T eos (absolute) 0.2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
--- OUTSIDE RECORDS SUMMARY | 2024-09-15 07:47 | XMS_ITS | Encounter Summary ---
Author Organization [address] [address] Care Team Providers Care Cow Tester Name Role Phone Tia Goodwin PA-C Primary Care Provi margo Eloy Canales MD Unavailable [phone] Cecille Mendez MD Unavailable [phone] Encounter Details Date Type Department Care Team (Late Contact Info) Description 10/25/2023 Scanned Document [facility] Neurology, Scan Social History Tobacco Use Types [...] Description 02/24/2025 8:30 AM EDT Office Visit [address] [place] [address] Tia Goodwin PA-C [address] [place] [address] documented as of this encounter Visit Diagnoses Not on filedocumented in this encounter Care Teams Cow Tester Relationship Specialty Start Date End Date Tia Goodwin PA-C [address] [place] [address] PCP - General Internal Medicine 08/26/23 Eloy Canales MD [address] [place] [address] Neurology 08/26/23 Cecille Mendez MD 46 [facility] [address] [place] [address] Referring Provider Obstetrics and Gynecology 08/26/23 Natalie Walker Physician Gastroenterology 08/13/23 documented as of this encounter
--- OUTSIDE RECORDS SUMMARY | 2024-09-15 07:47 | XMS_ITS ---
[facility] Name [facility] Unknown Results Test Name/Text Value Interpretation Date Range Source PCP Ur Ql NEGATIVE Normal [id number] - 25 [facility] Notes and Comments Normal [id number] [facility] Benzodiaz Ur Ql NEGATIVE Normal [id number] - 100 [facility] BZE Ur Ql NEGATIVE Normal [id number] - 150 [facility] Creat Ur-mCnc 32mg/dL Normal [id number] - [facility] Methadone Ur Ql NEGATIVE Normal [id number] - 100 [facility] Buprenorphine Ur Ql NEGATIVE Normal [id number] - 5 [facility] MDMA Ur Ql NEGATIVE Normal [id number] - 500 [facility] Oxidants Ur Ql NEGATIVE Normal [id number] - 200 QU EST Opiates Ur Ql NEGATIVE Normal [id number] - [address] medMATCH Summary Normal [id number] [facility] THC Ur Ql NEGATIVE Normal [id number] - 20 [facility] fentaNYL Ur Ql Scn NEGATIVE Normal [id number] - 0.5 [facility] traMADol Ur-mCnc NEGATIVE Normal [id number] - 100 [facility] Amphetamines Ur Ql NEGATIVE Normal [id number] - 500 [facility] Ritalinic Acid NEGATIVE Normal [id number] - 100 QU EST pH Ur 7.8 Normal [id number] 4.5 - 9 [facility] oxyCODONE Ur Ql NEGATIVE Normal [id number] - 100 [facility] Ethanol Ur Ql NEGATIVE Normal [id number] - [address] Barbiturates Ur Ql NEGATIVE Normal [id number] - 300 [facility] Nortramadol Ur-mCnc NEGATIVE Normal [id number] - 100 [facility] 6MAM Ur Ql NEGATIVE Normal [id number] - 10 [facility] Medication prescribed Hydrocodone Normal [id number] [facility] Encounters Encounter Type Encounter Reason Primary Diagnosis Location Date Ambulatory Follow-up [facility]up [facility] 09/[facility]/2024 Ambulatory Essential (primary) hypertension Essential (primary) hypertension [facility] 02/20/2024 Ambulatory [facility]al [facility]p [facility]2023 Care Team Organization Name Specialty Phone Email Start Date End Da te [facility] [employer] AARON Primary Care 08/27/2023 [facility] [employer] YOMI WALKER Primary Care 08/27/2023 [facility] [employer] [employer] NO PCP Primary Care 06/06/2023
--- OUTSIDE RECORDS SUMMARY | 2024-09-15 07:47 | XMS_ITS | Clinical Summary ---
Author Organization [facility] Address [address] [place] [address] Phone Care Team Providers Care Physician Advisor Name Role Phone Unavailable Primary Care Provider Unavailabl e Allergies Active Allergy Reactions Criticality Noted Date Comments Gluten Meal 10/23/2022 Levofloxacin Other (see comments) 10/20/2020 Lisinopril Other (see comments) 10/20/2020 Medications Magnesium 250 MG tablet Take 1 tablet by mouth 1 (one) time each day Active Multiple Vitamins-Mineral s (MULTIVITAMIN ADULT EXTRA C PO) Take 1 tablet by mouth 1 (one) time each day Active Apple Cider Vinegar 300 MG tablet Take 1 tablet by mouth 1 (one) time each day Active ascorbic acid (VITAMIN C) 500 MG tablet Take 1 tablet by mouth 1 (one) time each day Active Cholecalciferol 50 MCG (2000 UT) capsule Take 1 capsule by mouth 1 (one) time each day Active fingolimod (GILENYA) 0.5 MG capsule Take 1 capsule by mouth 1 (one) time each day Active losartan (COZAAR) 50 MG tablet Take 1 tablet by mouth 1 (one) time each day Active pyridoxine (VITAMIN B-6) 100 MG tablet Take 100 mg by mouth 1 (one) time each day 2 Active sodium bicarbonate 650 MG tablet DISSOLVE AND TAKE ONE TABLET BY MOUTH EVERY DAY 30 tablet 5 3 Active Active Problems Problem Noted Date Diagnosed Date Renal stone 10/20/2020 Essential hypertension 10/20/2020 Anemia of chronic disease 10/20/2020 Family History Medical History Relation Comments Hypertension Father Dementia Mother Hypertension Mother Relation Status Comments Father Unknown Mother Unknown Social History Tobacco Use Types Packs/Day Years Used Date Smoking Tobacco: Former Smokeless Tobacco: Never Alcohol Use Standard Drinks/Week Comments No 0 (1 standard drink = 0.6 oz pur e alcohol) Comments Unknown Sex and Gender Information Value Date Recorded Sex Assigned at Not on file Legal Sex Female 5:02 PM EST Gender Identity Not on file Sexual Orientation Not on file Last Filed Vital Signs Vital Sign Reading Time Taken Comments Blood Pressure 122/76 10/23/2022 12:53 PM EDT Pulse 70 10/23/2022 12:53 PM EDT Temperature - - Respiratory Rate - - Oxygen Saturation 96% 10/23/2022 12:53 PM EDT Inhaled Oxygen Concentration - - Weight 83.5 kg (184 lb) 10/23/2022 12:53 PM EDT Height 157.5 cm (5' 2 ) 10/23/2022 12:53 PM EDT Body Mass Index 33.65 10/23/2022 12:53 PM EDT Plan of Treatment Health Maintenance Due Date Last Done Comments Breast Cancer Screening 1958 Pneumococcal Vaccine: 50+ Ye ars (1 of 2 - PCV) 1977 Colorectal Cancer Screening: Annual FOBT 2007 Colorectal Cancer Screening: Colonoscopy 2007 Colorectal Cancer Screening: Sigmoidoscopy 2007 Influenza Vaccine (Season Ended) 2025 Hepatitis B Vaccine Aged Out No longe r eligible based on patient's age to complete this topic Insurance [facility]
--- OUTSIDE RECORDS SUMMARY | 2024-09-15 07:47 | XMS_ITS | Clinical Summary ---
Author Organization [facility] Address [address] [place] [address] Care Team Providers Care Household Chores Name Role Phone Tia Goodwin PA-C Primary Care Provi margo Eloy Canales MD Unavailable [phone] Cecille Mendez MD Unavailable [phone] Allergies Active Allergy Reactions Criticality Noted Date Comments Gluten Meal Unknown/Patient and Family Unable to Define Medium 10/23/2022 Levofloxacin Unknown/Patient and Family Unable to Define,Other (See Comments) Medium 10/20/2020 Lisinopril Cough,Other (See Comments) Low Medications ascorbic acid (VITAMIN C) 500 MG tablet Take 1 tablet (500 mg total) by mouth daily. Active Cholecalciferol (VITAMIN D3) 2000 UNITS Cap capsule Take 1 capsule (2,000 Units total) by mouth daily. Active sodium bicarbonate 650 MG tablet Take 1 tablet (650 mg total) by mouth daily. 023 Active ocrelizumab (Ocrevus) 300 MG/10ML injection as directed Intravenous 024 Active Turmeric 500 MG Cap Take by mouth. Activ e Magnesium 400 MG Cap Take by mouth. Activ e fluticasone (FloNASE) 50 mcg/spray nasal sprayIndications: PND (post-nasal drip) 1 spray into each nostril daily. 1 each 3 024 Active losartan (COZAAR) 50 MG tabletIndications :Essential hypertension TAKE ONE TABLET BY MOUTH EVERY DAY 90 tablet 3 025 Active atorvastatin (LIPITOR) 10 MG tabletIndications :Hyperlipidemia, unspecified hyperlipidemia type Take 1 tablet (10 mg total) by mouth daily. 90 tablet 3 025 2025 Active HYDROcodone-aceta minophen (NORCO) 5-325 mg per tabletIndications :Migraine without status migrainosus, not intractable, unspecified migraine type Take 1 tablet by mouth 4 times daily (every 6 hours) as needed (headache). Max Daily Amount: 4 tablets 30 tablet 025 2024 Active losartan (COZAAR) 50 MG tabletIndications :Essential hypertension Take 1 tablet (50 mg total) by mouth daily. 90 tablet 3 024 2024 Discontinued Apple Cider Vinegar 600 MG Cap Take by mouth. 2024 Discontinued(M ed List Clean-up/Old Med - No E-Cancel/No AVS) glucosamine chondroitin complex (OSTEO BI-FLEX) Tab tablet Take by mouth. 2024 Discontinued(M ed List Clean-up/Old Med - No E-Cancel/No AVS) HYDROcodone-aceta minophen (NORCO) 5-325 mg per tabletIndications :Migraine without status migrainosus, not intractable, unspecified migraine type Take 1 tablet by mouth 4 times daily (every 6 hours) as needed (headache). Max Daily Amount: 4 tablets 30 tablet 024 2024 Discontinued(R eorder) Active Problems Problem Noted Date Diagnosed Date Hyperlipidemia 02/20/2024 Vitamin D deficiency 02/20/2024 MS (multiple sclerosis) 08/26/2023 Overview (08/26/2023): Dx 06/2010;following with Dr Bailey; ocrelizumab infusions History of kidney stones 08/26/2023 Morbid obesity 08/26/2023 Migraines 08/26/2023 History of colon polyps 08/26/2023 IFG (impaired fasting glucose) 08/26/2023 Back pain 08/26/2023 History of tobacco use 08/26/2023 Essential hypertension 10/20/2020 Resolved Problems Problem Noted Date Diagnosed Date Resolved Date Anemia 08/26/2023 02/20/2024 Ischemic colitis 08/26/2023 08/27/2023 Elevated LFTs 08/26/2023 02/20/2024 Encounters Date Type Department Care Team Description 09/03/2024 8:00 AM EDT Office Visit [address] [phone] Tia Goodwin PA-C MS (multiple sclerosis) (HCC) (Primary Dx); Essential hypertension; History of kidney stones; Migraine without status migrainosus, not intractable, unspecified migraine type; History of colon polyps; IFG (impaired fasting glucose); Chronic low back pain, unspecified back pain laterality, unspecified whether sciatica present; History of tobacco use; Hyperlipidemia, unspecified hyperlipidemia type; Vitamin D deficiency; Class 1 obesity due to excess calories with serious comorbidity and body mass index (BMI) of 33.0 to 33.9 in adult; Need for pneumococcal 20-valent conjugate vaccination 09/03/2024 Travel 08/29/[address] [address] Tia Goodwin PA-C Essential hypertension from Last 3 Months Immunizations Immunization Administration Dates Next Due Influenza, Quadrivalent (FLU ARIX, AFLURIA, FLULAVAL, FLUZONE) Preservative Free IM 02/21/2023 Pneumococcal Conjugate 13-Valent 02/14/2021 Pneumococcal Conjugate 20-Valent 09/03/2024 Pneumococcal Polysaccharide 23-Valent 09/23/2014 RSV VACCINE,Uspecified 03/14/2023 Tdap 12/05/2019 Zoster Vaccine Recombinant (Shingrix) 05/08/2019 ,03/04/2019 Family History Medical History Relation Name Comments Coronary artery disease Father Diabetes Father Dementia Mother Heart failure Mother Relation Name Status Comments Father Mother Social History Tobacco Use Types Packs/Day Years Used Date Smoking Tobacco: Former Cigarettes 1 25 Smokeless Tobacco: Never Alcohol Use Standard Drinks/Week Comments Not Currently 0 (1 standard drink = 0.6 oz pur e alcohol) Social Connection and Isolat ion Panel [NHANES] Answer Date Recorded In a typical week, how many times do you talk on the phone with family, friends, or neighbors? More than three times a week 09/03/2024 Frequency of Social Gatherin gs with Friends and Family Not on file 09/03/2024 Attends Hinduism Services Not on file 09/03 Active Member of Clubs or Organizations Not on f ile 09/03/2024 Attends Club or Organization Meetings Not on javy e 09/03/2024 Marital Status Not on file 09/03/2024 AUDIT-C Answer Date Recorded Q1: How often do you have a drink containing alc ohol? Monthly or less 09/03/2024 Q2: How many drinks containi ng alcohol do you have on a typical day when you are drinking? 1 or 2 09/03/2024 Frequency of Binge Drinking Not on file 08/13 PHQ-2 Answer Date Recorded PHQ-2 Total Score 0 02/20/2024 Hunger Vital Sign Answer Date Recorded Within the past 12 months, y ou worried that your food would run out before you got the money to buy more. Never true 09/04/19 25 Within the past 12 months, t he food you bought just didn't last and you didn't have money to get more. Never true 09/03/2024 PRAPARE - Transportation Answer Date Re corded In the past 12 months, has l ack of transportation kept you from medical appointments or from getting medications? No 08/13 In the past 12 months, has l ack of transportation kept you from meetings, work, or from getting things needed for daily living? No 09/03/2024 Housing Stability Vital Sign Answer Laurent e Recorded In the last 12 months, was t here a time when you were not able to pay the mortgage or rent on time? No 09/03/2024 In the past 12 months, how m any times have you moved where you were living? 0 09/03/2024 At any time in the past 12 m [facility], were you homeless or living in a snf (including now)? No 09/03/2024 Education Answer Date Recorded What is the highest level of school you have completed or the highest degree you have received? GED or equivalent Comments Unknown Sex and Gender Information Value Date Recorded Sex Assigned at Not on file Legal Sex Female 6:46 PM EST Gender Identity Not on file Sexual Orientation Not on file Last Filed Vital Signs Vital Sign Reading Time Taken Comments Blood Pressure 148/90 09/03/2024 8:40 AM EDT Pulse 73 09/03/2024 7:50 AM EDT Temperature 36.4 ??C (97.5 ??F) 09/03/2024 7:50 AM ED T Respiratory Rate 16 09/03/2024 7:50 AM EDT Oxygen Saturation 96% 09/03/2024 7:50 AM EDT Inhaled Oxygen Concentration - - Weight 86.5 kg (190 lb 12.8 oz) 09/03/2024 7:50 AM EDT Height 160 cm (5' 3 ) 09/03/2024 7:50 AM EDT Body Mass Index 33.8 09/03/2024 7:50 AM EDT Plan of Treatment Upcoming Encounters Date Type Department Care Team (Late st Contact Info) Description 02/24/2025 8:30 AM EDT Office Visit [address] [phone] Tia Goodwin PA-C [address] [place] [address] Health Maintenance Due Date Last Done Comments DXA Bone Density (Females,Ages 65 and older) 2023 01/08/2020 (Previously Completed) Influenza Vaccine 12/12/2024 02/21/2023 Physical 02/19/2025 02/20/2024, 02/20/2024 Mammogram 04/08/2026 04/08/2024, 01/17/2023 (Previously Completed) Colonoscopy 08/11/2026 08/11/2021 (Previously Completed) DTaP/Tdap/Td Vaccines (2 - Td or Tdap) 12/04/2029 12/05/2019 Zoster (Shingles) Vaccine Completed 2018, 03/04/2019 RSV Vaccine 60 years and older and Patients Completed 03/14/2023 Pneumococcal Vaccines 50+ Completed 2024, 02/14/2021, 09/23/2014 COVID-19 Vaccine Discontinued Hepatitis B Vaccines Aged Out No long er eligible based on patient's age to complete this topic Hepatitis C Virus Screening Discontinued Procedures Procedure Name Priority Date/Time Associated Diagnosis Comments DRUG MONITORING 14 Routine 09/03/2024 8: 45 AM EDT Migraine without status migrainosus, not intractable, unspecified migraine type IMAGING BREAST/BX/MAMMO Routine 04/08/2024 11:23 AM EST from Last 3 Months or Most Recently Relevant to Health Maintenance Results * (ABNORMAL) Drug Monitoring 14 (Q [id number]) (09/03/2024 8:45 AM EDT) [facility] medMATCH Summary [facility] [place] Comment: ?Prescribed ?Prescribed ?Not Prescribed ?Consistent ?Inconsistent ?Inconsistent ?Hydrocodone ? Prescribed Drug 1 Hydrocodone [employer] Barbiturates NEGATIVE <300 ng/mL [employer] Fentanyl, Urine NEGATIVE <0.5 ng/mL [employer] Methadone Metabolite NEGATIVE <100 ng/mL [employer] Phencyclidine, Urine NEGATIVE <25 ng/mL [employer] Desmethyltramadol NEGATIVE <100 ng/mL [employer] Tramadol NEGATIVE <100 ng/mL [employer] Tramadol Comments Qu [employer] Comment:See LDT Notes Ritalinic Acid NEGATIVE <100 ng/mL [employer] Ritalinic Acid Comments [employer] Comment:See LDT Notes Alcohol Metabolites NEGATIVE <500 ng/mL [employer] Amphetamines, Urine Ql NEGATIVE <500 ng/mL [employer] Benzodiazepines NEGATIVE <100 ng/mL [employer] Buprenorphine, Urine Ql NEGATIVE <5 ng/mL [employer] Cocaine Metabolite NEGATIVE <150 ng/mL [employer] 6 Acetylmorphine NEGATIVE <10 ng/mL [employer] Marijuana Metabolite NEGATIVE <20 ng/mL [employer] MDMA NEGATIVE <500 ng/mL [employer] Opiates NEGATIVE <100 ng/mL [employer] medMATCH Opiates INCONSISTENT(A ) [employer] Oxycodone Screen, Urine NEGATIVE <100 ng/mL [employer] Creatinine, Urine 32.0 > or = 20.0 mg/dL [employer] pH 7.8 4.5 - 9.0 [employer] Oxidant NEGATIVE <200 mcg/mL [employer] Notes and Comments Q [employer] Comment: This drug testing is for medical treatment only. Analysis was performed as non-forensic testing and these results should be used only by healthcare providers to render diagnosis or treatment, or to monitor progress of medical conditions. LDT Notes: Confirmation tests were developed and their analytical performance characteristics have been determined by [employer]. It has not been cleared or approved by the FDA. This assay has been validated pursuant to the CLIA regulations and is used for clinical purposes. medMATCH(R) enables providers to identify if drug use is consistent or inconsistent with a corresponding prescribed medication(s) list. Healthcare Providers needing Interpretation assistance, please contact us at [phone] ( ) M-F, 8am to 10pm EST Urine Urine specimen / Unknown 09/03/2024 8:45 AM EDT 09/04/2024 4:00 AM EDT Tia Goodwin PA-C URINE ORDERABLES Fi nal Result You[facility] [address] [place] [address] * Imaging Breast/Bx/Mammo Result (04/08/2024 11:23 AM EST) Anatomical Region Laterality Modality Other External Provider MD [facility] Final Result from Last 3 Months or Most Recently Relevant to Health Maintenance Insurance [facility] Care Teams Household Chores Relationship Specialty Start Date End Date Tia Goodwin PA-C [address] [place] [address] PCP - General Internal Medicine 08/26/23 Eloy Canales MD [address] [address] Neurology 08/26/23 Cecille Mendez MD 46 [facility] [address] [place] [address] Referring Provider Obstetrics and Gynecology 08/26/23 Natalie Walker Physician Gastroenterology 08/13/23
--- OUTSIDE RECORDS SUMMARY | 2024-09-15 07:47 | XMS_ITS | Encounter Summary ---
Author Organization [facility] Address [address] [place] [address] Care Team Providers Care Nurse Practitioner Manager Name Role Phone Tia Goodwin PA-C Primary Care Provi margo Eloy Canales MD Unavailable Cecille Mendez MD Unavailable [phone] Encounter Details Date Type Department Care Team (Late Contact Info) Description 01/17/2024 Scanned Document [facility] [address] [place] [address] Neurology, Scan Social History Tobacco Use Types [...] Description 02/24/2025 8:30 AM EDT Office Visit [address] [place] [phone] Tia Goodwin PA-C [address] [place] [address] documented as of this encounter Visit Diagnoses Not on filedocumented in this encounter Care Teams Nurse Practitioner Manager Relationship Specialty Start Date End Date Tia Goodwin PA-C [address] [place] [address] PCP - General Internal Medicine 08/26/23 Eloy Canales MD [address] [address] Neurology 08/26/23 Cecille Mendez MD 46 [facility] [address] [place] [address] Referring Provider Obstetrics and Gynecology 08/26/23 Natalie Walker Physician Gastroenterology 08/13/23 documented as of this encounter
--- OUTSIDE RECORDS SUMMARY | 2024-09-15 07:47 | XMS_ITS | Encounter Summary ---
Author Organization [address] [address] Care Team Providers Care Home Appraiser Name Role Phone Tia Goodwin PA-C Primary Care Provi margo Eloy Canales MD Unavailable [phone] Cecille Mendez MD Unavailable Encounter Details Date Type Department Care Team (Late st Contact Info) Description 08/27/2023 Scanned Document [address] [place] [phone] Tia Goodwin PA-C [address] [place] [address] Social History Tobacco Use Types Packs/Day Years [...] to sit still 1 08/27/2023 8:24 AM EDT Vickie Ryan MA Becoming easily annoyed or irritable 0 08/27/2023 8:24 AM EDT Vickie Ryan MA Feeling afraid as if somethi ng awful might happen 0 08/27/2023 8:24 AM EDT Vickie Ryan MA * Over the past 2 weeks, how often have you been bothered by any of the following problems? Question Answer Date of Assessment Author Patient Health Questionnaire -2 Score 0 08/27/2023 8:23 AM EDT Vickie Ryan MA * Question Answer Date of Assessment Author Patient Health Questionnaire -9 Score 0 08/27/2023 8:23 AM EDT Vickie Ryan MA * Over the last 2 weeks, how often have you been bothered by any of the following problems? Question Answer Date of Assessment Author ALEXANDER-7 Total Score 1 08/27/2023 8:24 AM EDT Vickie Ryan MA * Question Answer Date of Assessment Author Little interest or pleasure in doing things Not at all 08/27/2023 8:23 AM EDT Vickie Ryan MA Feeling down, depressed, or hopeless Not at all 08/27/2023 8:23 AM EDT Vickie Ryan MA Trouble falling or staying asleep, or sleeping too much Not at all 08/27/2023 8:23 AM JENNIFERT Vickie Ryan MA Feeling tired or having little energy Not at all 08/27/2023 8:23 AM EDT Vickie Ryan MA Poor appetite or overeating Not at all 08/27/2023 8:23 AM EDT Vickie Ryan MA Feeling bad about yourself - or that you are a failure or have let yourself or your family down Not at all 08/27/2023 8:23 AM EDT Vickie Ryan MA Trouble concentrating on things, such as [...] Description 02/24/2025 8:30 AM EDT Office Visit [facility] 100 [facility] [address] [place] [phone] Tia Goodwin PA-C [address] [place], [place] [address] documented as of this encounter Visit Diagnoses Not on filedocumented in this encounter Care Teams Home Appraiser Relationship Specialty Start Date End Date Tia Goodwin PA-C [address] [place] [address] PCP - General Internal Medicine 08/26/23 Eloy Canales MD [address] [place] [address] Neurology 08/26/23 Cecille Mendez MD 46 [facility] [address] [place] [address] Referring Provider Obstetrics and Gynecology 08/26/23 Natalie Walker Physician Gastroenterology 08/13/23 documented as of this encounter
--- OUTSIDE RECORDS SUMMARY | 2024-09-15 07:47 | XMS_ITS | Encounter Summary ---
Author Organization [facility] Address [address] [place] [address] Phone Care Team Providers Care Engineer Station Mainline Name Role Phone Unavailable Primary Care Provider Unavailabl e Reason for Visit * Reason Comments Med Refill Encounter Details Date Type Department Care Team (Late st Contact Info) Description 01/21/2022 Refill [facility] [address] [place] [address] Patrick Barrera MD Social History Tobacco Use Types Packs/Day Years [...] as of this encounter Plan of Treatment Not on file documented as of this encounter Visit Diagnoses Not on filedocumented in this encounter
== END 2024-09-15 07:45 | disposition home or self-care (01) ==
LOC: HO.US 07:44
PROVIDERS: PCP Physician Assistant Medical; Visit Provider Nurse Practitioner Family
DX: N20.0 Calculus of kidney (principal); N28.1 Cyst of kidney, acquired
CPT/HCPCS: 76775

== ENCOUNTER → 2024-09-15 07:46 | Outpatient (BNV) | payer BC, SELFPAY | PROVIDERS: PCP Physician Assistant Medical; Visit Provider Radiology Diagnostic Radiology | DX: N28.1 Cyst of kidney, acquired (principal); R93.422 Abnormal radiologic findings on diagnostic imaging of left kidney | CPT/HCPCS: 76775 ==

== ENCOUNTER 2024-10-01 08:11 | Outpatient (AMB) | payer BC, SELFPAY ==
--- NOTE | 2024-10-01 08:29 | A.OFFVIS_ITS ---
Intake Visit Reasons: 1y/US(set) Intake Note: Patient presents today for follow up on: Kidney Stone, Renal Cyst, and Ultrasound Results Imaging Completed: 09/15/24 Urology Medications: Vitamin B6 Blood Thinner: none Supervisor Warping Department Required: No Accompanied by: Self / Same As Patient Allergies levofloxacin [From LEVAQUIN] Allergy (Severe, Verified 10/01/24 12:13) RENDERS PT IMMOBILE acetaminophen [From PERCOCET] Allergy (Unknown, Verified 10/01/24 12:13) NAUSEA & VOMITING lisinopril Allergy (Unknown, Verified 10/01/24 12:13) Unknown oxycodone [From PERCOCET] Allergy (Unknown, Verified 10/01/24 12:13) NAUSEA & VOMITING gluten Adverse Reaction (Unknown, Uncoded 10/01/24 12:13) constipation Medication List - Last Reconciled 10/01/24 by SUNDAY Saunders losartan 50 mg PO DAILY ocrelizumab (Ocrevus) 600 mg IV [id number] sodium bicarbonate 650 mg PO DAILY HPI Comments Details: Ana Laura is a pleasant 64 year old female patient of Dr. Ricci. She has a past medical history of MS. She presents to the office today for follow-up of her nephrolithiasis and renal cyst. Recent renal ultrasound results reviewed with the patient today. 10/05 Kidneys normal size and position with normal cortical width and echotexture. No nephrolithiasis. Mild pelvicaliectasis on the right. Renal cortical cyst lower pole right kidney. Indeterminate hypoechoic lesions lower pole left kidney mildly changed can be correlated with a dedicated CT or MRI renal protocol study with and without contrast per radiology report. In discussion with the patient today she reports to be doing and feeling well. She currently denies any bothersome urinary issues or concerns. She denies urinary urgency, urinary frequency, incontinence, nocturia, hematuria, dysuria, foul smelling urine, changes to urinary stream, flank pain, fever, and or chills. She is happy with her current voiding parameters. In office urinalysis results reviewed with the patient today. PREVIOUS OFFICE NOTE: Nephrolithiasis Prior history of kidney stones Doing well with hydration in using lemon water therapy Imaging 10/01 left 2 small renal cyst Imaging 10/03 right 2mm stone lower pole; left 2 small renal cyst. Therapeutic plan - continue fluid intake - interval imaging - continue Vitamin B6 PFSH Medical History Multiple sclerosis Family History Mother Hypertension Social History Patient Tobacco Use Status: Former Tobacco user Review of Systems Const Reports as per HPI Eyes Reports no additional complaints ENT Reports no additional complaints Card Reports no additional complaints Resp Reports no additional complaints GI Reports no additional complaints Reports as per HPI Musc Reports no additional complaints Neuro Reports as per HPI Psych Reports no additional complaints Endo Reports no additional complaints Matthias/Lymph Reports no additional complaints Aller/Immun Reports no additional complaints Physical Exam Const General: cooperative, healthy appearing, comfortable, no acute distress, well developed, alert and awake Orientation/consciousness: patient oriented x3 Limitations: no limitations HEENT Head: Yes normal to inspection, Yes normocephalic and Yes atraumatic Ears: hearing grossly normal bilaterally Eyes General: appearance normal, both eyes and all related structures Neck Neck: Yes normal visual inspection and Yes trachea midline Chest Chest palpation & inspection: normal inspection of the chest Resp Effort & Inspection: normal respiratory effort and able to speak in complete sentences Cardio Rate: regular rate GI Inspection: Yes normal to inspection General: Yes no CVA tenderness Back/Spine/Pelvis Back: no CVA tenderness Skin General skin exam: no rashes or lesions noted Neuro General: patient oriented x3 Extrem General: Yes normal to inspection Psych Appearance: grossly normal and well kempt Mental Status: mental status grossly normal Speech and movement: Normal speech and movement present and Clear speech present Affect: normal affect Attitude: cooperative Thought process: Normal thought process present Thought content: Normal thought content present Insight: Fair insight present (Psych) Judgement: Fair judgement present (Psych) Results AMB Urinalysis, Automated UA Leukoctes 15 Farida/uL Last Edit by Mya Martinez on 10/01/24 08:43 UA Nitrite Last Edit by Brandsheryl Martinez on 10/01/24 08:43 UA Urobilinogen 0.2 mg/dL Last Edit by SAVORTEXmarino Martinez on 10/01/24 08:43 UA Protein 0 mg/dL Last Edit by Huniesheryl Martinze on 10/01/24 08:43 UA pH 6.0 Last Edit by Huniesheryl Martinez on 10/01/24 08:43 UA Blood 0 Emmett/uL Last Edit by [email or web address] on 10/01/24 08:43 UA Specific Fontanelle 1.020 Last Edit by DerbySoftverenice on 10/01/24 08:43 UA Ketone Last Edit by DerbySoftverenice on 10/01/24 08:43 UA Bilirubin 0 mg/dL Last Edit by Huniesheryl Martinez on 10/01/24 08:43 UA Glucose 0 mg/dL Last Edit by Huniesheryl Martinez on 10/01/24 08:43 Results Reviewed Results Reviewed: Laboratory Last Values Urine pH (Auto) 6.0 10/01/24 08:41 Specific Fontanelle (Auto) 1.020 10/01/24 08:41 Urine Protein (Auto) 0 mg/dL 10/01/24 08:41 Glucose (UA)(Auto) 0 mg/dL 10/01/24 08:41 Urine Blood (Auto) 0 Emmett/uL 10/01/24 08:41 Urine Bilirubin (Auto) 0 mg/dL 10/01/24 08:41 Urine Urobilinogen (Auto) 0.2 mg/dL 10/01/24 08:41 Leukocyte Esterase (Auto) 15 Farida/uL 10/01/24 08:41 Date of Service: 09/15/24 Procedure(s): US renal BI Findings: Right kidney normal size and echotexture, 10.8 cm length. Mild pelvicaliectasis. Normal color flow. No nephrolithiasis. Lower pole renal cortical cyst measuring 9 x 8 x 9 mm previously measuring 6 x 5 x 6 mm. Left kidney normal size and echotexture, 11.5 cm length. No nephrolithiasis. Normal color flow. Hypoechoic lesion lower pole measuring 1.4 x 1.3 x 1.2 cm previously measuring 1.4 x 1.3 x 1.0 cm and 0.9 x 0.8 x 0.7 cm previously measuring 0.9 x 0.8 x 0.8 cm. Impression: 1. Kidneys normal size and position with normal cortical width and echotexture. No nephrolithiasis. Mild pelvicaliectasis on the right. Renal cortical cyst lower pole right kidney. Indeterminate hypoechoic lesions lower pole left kidney little changed can be correlated with a dedicated CT or MRI renal protocol study with and without contrast Assessment & Plan Assessment & Plan (1) Nephrolithiasis: Code(s): N20.0 - Calculus of kidney Category: Medical (2) Renal cyst: Code(s): N28.1 - Cyst of kidney, acquired Category: Medical Plan In office urinalysis results reviewed with the patient today; as noted above. Recent renal imaging results reviewed with the patient today; as noted above. She currently denies any bothersome urinary issues or concerns. She reports be happy with current voiding parameters. We discussed further workup to include CT renal mass protocol verses MRI renal mass protocol versus surveillance monitoring; risks and benefits of these interventions were discussed. Will obtain CT with and without contrast prior to next office visit to assess potential change in renal cyst as well as nephrolithiasis. We discussed the importance adequate hydration relation to nephrolithiasis as well as overall health and well-being. Continue adding 1 oz of lemon juice to water daily. BUN and creatinine ordered for imaging. Stopped vitamin B6 Follow-up in 1 year with imaging to be completed prior; or sooner with any issues, concerns, and or questions. Orders: Orders AMB Urinalysis Automated Today Z13.9 - Encounter for screening, unspecified Creatinine 1 Year N20.0 - Calculus of kidney, N28.1 - Cyst of kidney, acquired CT abdomen wo/w IV con 1 Year C64.9 - Malignant neoplasm of unspecified kidney, except renal pelvis Blood Urea Nitrogen 1 Year N20.0 - Calculus of kidney, N28.1 - Cyst of kidney, acquired Medications: Discontinued pyridoxine (vitamin B6) Discontinued Reason: Patient Completed Course 50 mg (1/2 x 100 mg) PO DAILY 90 days 45 tabs 5RF Patient Instructions: The patient had an opportunity to ask questions regarding the treatment plan. All questions were answered. Physical exam, labs, and imaging were discussed and reviewed in detail. As well as risks, benefits, and discussion of treatment choices. No major barriers to understanding were identified. The patient expressed understanding and agreement with the above treatment plan. The patient was made aware they should contact our office by phone for worsening of their current condition, the appearance of new symptoms, or with any questions or concerns. Compliance is encouraged with any medications and follow up testing that is ordered. It is a privilege to be allowed the opportunity to participate in? your urological care.? Again, if you have any questions or concerns If you have any questions or concerns please do not hesitate to contact me. The office is [phone]. This note is constructed using voice recognition software. While every effort has been made to ensure accuracy nascar pit crew person errors may have been included. Yours sincerely, SUNDAY Saunders Coding Level of Care Code Est Pt Level 3 (90990) Complex EM visit Add On G2211 Diagnoses Nephrolithiasis N20.0 Renal cyst N28.1
== END 2024-10-01 09:09 | disposition home or self-care (01) ==
LOC: HO.HUSH 08:12
PROVIDERS: PCP Physician Assistant Medical; Visit Provider Nurse Practitioner Family
DX: N20.0 Calculus of kidney (principal); N28.1 Cyst of kidney, acquired; Z13.9 Encounter for screening, unspecified
CPT/HCPCS: 99213

== ENCOUNTER 2024-10-01 08:11 | Outpatient (REF) | payer BC, SELFPAY ==
[2024-10-01 10:18] LABS: MANUAL DIFF FLAG NO
[2024-10-01 10:34] LABS: Basophils Absolute Auto 0.1 X10*3/uL (0.0-0.2); Basophils Percent Auto 0.9 % (0-2); Eosinophils Absolute Auto 0.1 X10*3/uL (0.0-0.4); Eosinophils Percent Auto 1.8 % (0-4); Hemoglobin 12.3 g/dl (12.0-16.0); Imm Gran Abs Auto 0.02 X10*3/uL (0.00-0.03); Imm Gran Pct Auto 0.4 % (0.0-0.4); Lymphocytes Absolute Auto 1.3 X10*3/uL (1.2-4.9); Mean Corpuscular HGB Conc 34.2 g/dl (31.0-35.0); Mean Corpuscular Hemoglobin 30.8 pg (27.0-33.0); Mean Corpuscular Volume 90.2 fL (80.0-98.0); Mean Platelet Volume 9.8 fL (9.4-12.3); Monocytes Absolute Auto 0.8 X10*3/uL (0.1-1.2); Monocytes Percent Auto 14.5 % (2-11); Neutrophils Absolute Auto 3.4 x10*3/uL (2.0-8.3); Neutrophils Percent Auto 59.4 % (45-73); Platelet Count 314 X10*3/uL (160-400); Red Blood Count 3.99 X10*6/uL (4.20-5.50); Red Cell Distribution Width 12.9 % (11.0-16.0); White Blood Count 5.7 X10*3/uL (4.8-10.8)
[2024-10-01 11:02] LABS: Appearance Urine Cloudy; Color Urine Dark Yellow; Glucose Urine UA Negative (Negative); Leukocyte Esterase Urine Moderate (2+) (Negative); Nitrite Urine Negative (Negative); Specific Gravity - Urine >= 1.030 (1.005-1.025); UMIC TRIGGER UA YES; Urine Blood Negative (Negative); Urine Ketones Trace mg/dL (Negative); Urine Protein Trace mg/dL (Neg-Trace)
[2024-10-01 11:05] LABS: Anion Gap 11 (12-20); Blood Urea Nitrogen 21 mg/dL (9-16); Calcium 9.3 mg/dL (8.4-10.2); Carbon Dioxide 26 mmol/L (22-29); Chloride 106 mmol/L (96-108); Estimated Glomerular Filt Rate > 60; Glucose Random 96 mg/dL (60-115); Potassium 4.2 mmol/L (3.3-5.1); Sodium 139 mmol/L (135-145)
--- OUTSIDE RECORDS SUMMARY | 2024-10-01 11:24 | XMS_ITS | Encounter Summary ---
Author Organization [address] [address] Care Team Providers Care Excellence Manager Name Role Phone Tia Goodwin PA-C Primary Care Provi margo Eloy Canales MD Unavailable [phone] Cecille Mendez MD Unavailable [phone] Encounter Details Date Type Department Care Team (Late Contact Info) Description 08/28/2023 Scanned Document [address] [phone] Primary Care, Scan Social History Tobacco Use [...] Description 02/24/2025 8:30 AM EDT Office Visit [address] [phone] Tia Goodwin PA-C [address] [place] [address] documented as of this encounter Visit Diagnoses Not on filedocumented in this encounter Care Teams Excellence Manager Relationship Specialty Start Date End Date Tia Goodwin PA-C [address] [place] [address] PCP - General Internal Medicine 08/26/23 Eloy Canales MD [address] [address] Neurology 08/26/23 Cecille Mendez MD [address] [facility] [address] [place] [address] Referring Provider Obstetrics and Gynecology 08/26/23 Natalie Walker Physician Gastroenterology 08/13/23 documented as of this encounter
--- OUTSIDE RECORDS SUMMARY | 2024-10-01 11:24 | XMS_ITS | Patient Health Record ---
Author Organization [facility] Address [address] [facility] [address] [place] [address] Care Team Providers Care Hardware Assembler Name Role Phone YOMI BOONE Primary Care Provider Unavail able Cecille Mendez Unavailable [phone] Allergies Allergen (clinical drug ingredient) Drug/Non Drug Allergy documented on EMR Reaction Allergy Type Onset Date Status LEVAQUIN Kidney Stones Drug Allergy Act varghese lisinopril Lisinopril Cough/Vomiting Drug Allergy Active Results Component Value Reference Range Notes PDF Report Reviewed date:02/04/2024 03:27:46 PM Interpretation: Performing Lab:[facility], [address], [address], [place], Phone - [phone], Director - [facility] Notes/Report: Clinical Information:[id number] Dates / Results....01/14/21 NIL, Neg HPV Other..............Post Menopausal No. of containers..01 ThinPrep Vial [id number] IGP No Culture 30 Plus Reviewed date:02/04/2024 03:28:00 PM Interpretation: Performing Lab:[facility], [address], [address], [place], Phone - [phone], Director - [facility] Notes/Report: Clinical Information:[id number] Dates / Results....01/14/21 NIL, Neg HPV Other..............Post [...] Criteria not met, HPV Genotype not performed. Reason For Referral No Information Medications Medication [...] Status Risk Notes Problem Postmenopausal atrophic vaginitis (86706853) Postmenopausal atrophic vaginitis (N95.2) Active confirmed Problem Multiple sclerosis (57935735) Multiple sclerosis (340) Active confirmed Major Problem Benign essential hypertension (7581162) Essential hypertension, benign (401.1) Active confirmed Major Problem Pyelonephritis (25280811) Unspecified pyelonephritis (590.80) Active confirmed Diag Problem Calculus of kidney (37791295) Calculus of kidney (592.0) Active confirmed Major Problem Osteoarthritis (901349971) Osteoarthrosis, unspecified whether generalized or localized, unspecified site (715.90) Active confirmed Major Problem Gynecological examination normal (567083177879698) Routine gynecological examination (V72.31) Active confirmed Problem Screening for malignant neoplasm of colon (564250671) Special screening for malignant neoplasms, colon (V76.51) Active confirmed Major Vital Signs Temperature 97.8 degrees Fahrenheit 01/30/2024 Blood pressure diastolic 100 mm Hg 01/30/2024 Height 62 in 01/30/2024 Blood pressure systolic 140 mm Hg 01/30/2024 Weight 186 lbs 01/30/2024 BMI 34.02 kg/m2 01/30/2024 Encounters Encounter Location Date Provider Diagnosis [address] [place] [address] 01/30/2024 Cecille Mendez Encounter for gynecological examination [...] SCREENING 01/09/2020 MAMMOGRAM, SCREENING 01/14/2021 MAMMOGRAM, SCREENING 01/30/2024 MAMMOGRAM, SCREENING 01/24/2023 MAMMOGRAM, SCREENING 01/18/2022 Urinalysis 01/06/2019 VITAMIN D 09/02/2014 1,25OH VITAMIN D 03/17/2015 1,25OH VITAMIN D 08/11/2015 COMPLETE BLOOD COUNT 03/17/2015 ESTRADIOL 09/02/2014 FSH 09/02/2014 IRON & TIBC 03/17/2015 LH 09/02/2014 THIN PREP,HPV,MAU IF HPV+ (>29YR)(SCRN) 10/16/2017 BONE DENSITY 01/30/2024 BONE DENSITY 10/16/2017 MM Digital Mammo Screening 10/16/2017 MM Digital Mammo Screening 01/30/2024 MM Digital Mammo Screening 01/09/2020 MM Digital Mammo Screening 01/14/2021 MM Digital Mammo Screening 01/18/2022 MM Digital Mammo Screening 01/24/2023 Next Appt Details Provider Name:Cecille Jones blake, 01/30/2025 08:50:00 AM, [address] [facility], [address], [place], [address], Insurance Providers Payer Name Payer Address Payer Phone Subscriber Number Group Number Insured Name Patient Relationship to Insured Coverage Start Date Coverage End Date [employer] [place] [address] [place] [address] [id number] CLAUDE CALLE Self - patient is the [...]
--- OUTSIDE RECORDS SUMMARY | 2024-10-01 11:24 | XMS_ITS | Encounter Summary ---
Author Organization [address] [address] Care Team Providers Care Lamp Assembler Name Role Phone Tia Goodwin PA-C Primary Care Provi margo Eloy Canales MD Unavailable [phone] Cecille Mendez MD Unavailable [phone] Encounter Details Date Type Department Care Team (Late st Contact Info) Description 08/27/2023 Scanned Document [address] [place] [phone] Tia Goodwin PA-C [address] [place] [id number] Social History Tobacco Use Types Packs/Day Years [...] Description 02/24/2025 8:30 AM EDT Office Visit [facility] [address] [facility] [address] [place] [phone] Tia Goodwin PA-C [address] [place], [place] [address] documented as of this encounter Visit Diagnoses Not on filedocumented in this encounter Care Teams Lamp Assembler Relationship Specialty Start Date End Date Tia Goodwin PA-C [address] [place] [address] PCP - General Internal Medicine 08/26/23 Eloy Canales MD [address] [place] [address] Neurology 08/26/23 Cecille Mendez MD [address] [facility] [address] [place] [address] Referring Provider Obstetrics and Gynecology 08/26/23 Natalie Walker Physician Gastroenterology 08/13/23 documented as of this encounter
--- OUTSIDE RECORDS SUMMARY | 2024-10-01 11:24 | XMS_ITS | Encounter Summary ---
Author Organization [facility] Address [address] [place] [address] Phone Care Team Providers Care Payment Poster Name Role Phone Unavailable Primary Care Provider Unavailabl e Reason for Visit * Reason Comments Med Refill Encounter Details Date Type Department Care Team (Late st Contact Info) Description 01/21/2022 Refill [facility] [address] [place] [address] Patrick Barrera MD Social History [...]
--- OUTSIDE RECORDS SUMMARY | 2024-10-01 11:24 | XMS_ITS | Data Portability ---
Author Organization [facility] [employer] Exegy Address [address] [place] [address] [place] [address] Care Team Providers Care Seam Rubber Name Role Phone YOMI WALKER Referring Provider [phone] YOMI ACEVEDO Primary Care Provider [phone] Assessment Encounter Date Assessment Date Assessment LastModified [...] and without contrast March 22, 2023 per [facility], compared to previous study December 17, [...] of lips and mild cough. ? [facility] 2023 5 months status post ocrelizumab [...] Go To The Location Of Their Choice, [id number] 04/23/2024 08:33:24 CD20 cells/10 0 CD19 cells, blood (OBS) 2023 025 mrossen [facility] (Centralized Electronic Ordering - All Locations), Patient Can Go To The Location Of Their Choice, [id number] 04/23/2024 08:33:24 CBC w/ auto diff 2023 024 SOULEYMANE [facility] (Centralized Electronic Ordering - All Locations), Patient Can Go To The Location Of Their Choice, [address] 01/18/2024 15:07:41 CD20 cells/10 0 CD19 cells, blood (OBS) 2023 024 SOULEYMANE [facility] (Centralized Electronic Ordering - All Locations), Patient Can Go To The Location Of Their Choice, [address] 01/18/2024 15:07:42 CBC w/ auto diff 2023 024 SOULEYMANE [facility] (Centralized Electronic Ordering - All Locations), Patient Can Go To The Location Of Their Choice, [address] 10/26/2023 15:07:28 CD20 cells/10 0 CD19 cells, blood (OBS) 2023 024 SOULEYMANE [facility] ([facility]ized Electronic Ordering - All Locations), Patient Can Go To The Location Of Their Choice, [address] 10/26/2023 15:07:29 Referral None recorded . Procedures None recorded . Surgeries None recorded . Imaging None recorded . Medication Orders None recorded . Patient TargetsNo targets recorded. Patient Instructions Encounter Date Encounter Id Patient Instructions Last Modified By Organization Details Last Modified Time 04/09/2023 [id number] PREVIOUS DISCUSS IONS We discussed that she has converted to positive in AME virus antibody presents. With AME virus antibody, she becomes at risk for PML in the context of treatment with Gilenya, although the risk is extremely low? i ncident rate ~3.12/100,000 patient years. (Neurology 2017September 25; 90(20): e1815? e 1821. [id number]). I suggest that we switch from Gilenya. [...] than for Gilenya, it is not zero. 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 When we discussed ocrelizumab, I did not [...] toxicity madhav Not available 04/09/2023 08:35:15 05/31/2023 [id number] PREVIOUS DISCUSS IONS We discussed that she has converted to positive in AME virus antibody presents. With AME virus antibody, she becomes at risk for PML in the context of treatment with Gilenya, although the risk is extremely low? i ncident rate ~3.12/100,000 patient years. (Neurology 2017 15; 90(20): e1815? e 1821. [id number]). I suggest that we switch from Gilenya. [...] than for Gilenya, it is not zero. 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 When we discussed ocrelizumab, I did not [...] toxicity mrossen Not available 05/31/2023 08:08:54 10/24/2023 [id number] PREVIOUS DISCUSS IONS We discussed that she has converted to positive in AME virus antibody presents. With AME virus antibody, she becomes at risk for PML in the context of treatment with Gilenya, although the risk is extremely low? i ncident rate ~3.12/100,000 patient years. (Neurology 2017 15; 90(20): e1815? e 1821. [id number]). I suggest that we switch from Gilenya. [...] than for Gilenya, it is not zero. 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 When we discussed ocrelizumab, I did not [...] drug therapy requiring intensive monitoring for toxicity madhva Not available 10/24/2023 08:58:09 01/16/2024 [id number] PREVIOUS DISCUSS IONS We discussed that she has converted to positive in AME virus antibody presents. With AME virus antibody, she becomes at risk for PML in the context of treatment with Gilenya, although the risk is extremely low? i ncident rate ~3.12/100,000 patient years. (Neurology 2018 September 25; 90(20): e1815? e 1821. [id number]). I suggest that we switch from Gilenya. [...] than for Gilenya, it is not zero. 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 When we discussed ocrelizumab, I did not [...] toxicity madhav Not available 01/16/2024 07:59:59 04/23/2024 [id number] PREVIOUS DISCUSS IONS We discussed that she has converted to positive in AME virus antibody presents. With AME virus antibody, she becomes at risk for PML in the context of treatment with Gilenya, although the risk is extremely low? i ncident rate ~3.12/100,000 patient years. (Neurology 2018 September 15; 90(20): e1815? e 1821. [id number]). I suggest that we switch from Gilenya. [...] than for Gilenya, it is not zero. 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 When we discussed ocrelizumab, I did not [...] x10e3 /uL 3.4-10 .8 Not Available [facility] ([facility]) [address] [place], [address], 10/26/2023 15:07:28 10/24/19 24 10/24/2023 CBC WITH DIFFE RENTI AL/PL ATELE T RBC 4.12 x10e6 /uL 3.77-5 .28 Not Available [facility] ([facility]) [address] [place], [address], 10/26/2023 15:07:28 10/24/19 24 10/24/2023 CBC WITH DIFFE RENTI AL/PL ATELE T hemoglobin 12.5 g/dL 11.1-1 5.9 Not Available [facility] ([facility]) [address] [place], [address], 10/26/2023 15:07:28 10/24/19 24 10/24/2023 CBC WITH DIFFE RENTI AL/PL ATELE T hematocrit 38.3 % 34.0-4 6.6 Not Available [facility] ([facility]) [address] [place], [address], 10/26/2023 15:07:28 10/24/19 24 10/24/2023 CBC WITH DIFFE RENTI AL/PL ATELE T MCV 93 fL 79-97 Not Available [facility] ([facility]) [address] [place], [address], 10/26/2023 15:07:28 10/24/19 24 10/24/2023 CBC WITH DIFFE RENTI AL/PL ATELE T MCH 30.3 pg 26.6-3 3.0 Not Available [facility] ([facility]) [address] [facility], [place], [address], 10/26/2023 15:07:28 10/24/19 24 10/24/2023 CBC WITH DIFFE RENTI AL/PL ATELE T MCHC 32.6 g/dL 31.5-3 5.7 Not Available [facility] ([facility]) [address] [place], [address], 10/26/2023 15:07:28 10/24/19 24 10/24/2023 CBC WITH DIFFE RENTI AL/PL ATELE T RDW 13.0 % 11.7-1 5.4 Not Available [facility] ([facility]) [address] [place], [address], 10/26/2023 15:07:28 10/24/19 24 10/24/2023 CBC WITH DIFFE RENTI AL/PL ATELE T platelets 367 x10e3 /uL 150-45 0 Not Available [facility] ([facility]) [address] [facility], [place], [address], 10/26/2023 15:07:28 10/24/19 24 10/24/2023 CBC WITH DIFFE RENTI AL/PL ATELE T neutrophils 64 % not estab. Not Available [facility] ([facility]) [address] [place], [address], 10/26/2023 15:07:28 10/24/19 24 10/24/2023 CBC WITH DIFFE RENTI AL/PL ATELE T lymphs 16 % not estab. Not Available [facility] ([facility]) [address] [place], [address], 10/26/2023 15:07:28 10/24/19 24 10/24/2023 CBC WITH DIFFE RENTI AL/PL ATELE T monocytes 16 % not estab. Not Available [facility] ([facility]) [address] [place], [address], 10/26/2023 15:07:28 10/24/19 24 10/24/2023 CBC WITH DIFFE RENTI AL/PL ATELE T eos 3 % not estab. Not Available [facility] ([facility]) [address] [facility], [place], [address], 10/26/2023 15:07:28 10/24/19 24 10/24/2023 CBC WITH DIFFE RENTI AL/PL ATELE T basos 1 % not estab. 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 0 Not Available [facility] ([facility]) [address] [place], [address], 10/26/2023 15:07:28 10/24/19 24 10/24/2023 CBC WITH DIFFE RENTI AL/PL ATELE T lymphs (absolute) 0.7 x10e3 /uL 0.7-3. 1 Not Available [facility] ([facility]) [address] [facility], [place], [address], 10/26/2023 15:07:28 10/24/19 24 10/24/2023 CBC WITH DIFFE RENTI AL/PL ATELE T monocytes(ab solute) 0.7 x10e3 /uL 0.1-0. 9 Not Available [facility] ([facility]) [address] [facility], [place], [address], 10/26/2023 15:07:28 10/24/19 24 10/24/2023 CBC WITH DIFFE RENTI AL/PL ATELE T eos (absolute) 0.1 x10e3 /uL 0.0-0. 4 Not Available [facility] ([facility]) [address] [facility], [place], [address], 10/26/2023 15:07:28 10/24/19 24 10/24/2023 CBC WITH DIFFE RENTI AL/PL ATELE T baso (absolute) 0.0 x10e3 /uL 0.0-0. 2 Not Available [facility] ([facility]) [address] [facility], [place], [address], 10/26/2023 15:07:28 10/24/19 24 10/24/2023 CBC WITH DIFFE RENTI AL/PL ATELE T immature granulocytes 0 % not estab. Not Available [facility] ([facility]) [address] [place], [address], 10/26/2023 15:07:28 10/24/19 24 10/24/2023 CBC WITH DIFFE RENTI AL/PL ATELE T immature grans (abs) 0.0 x10e3 /uL 0.0-0. 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 Not Available [facility] ([facility]) [address] [facility], [place], [address], 10/26/2023 15:07:28 10/24/19 24 10/26/2023 CD20 B CELLS % cd19-B cells 0.4 % 4.6-22 .1 below low normal Not Available [facility] ([facility]) [address] [facility], [place], [address], 10/26/2023 15:07:29 10/24/19 24 10/26/2023 CD20 B CELLS % cd20-B cells 0.4 % 5.0-22 .3 below low normal Not Available [facility] ([facility]) [address] [place], [address], 10/26/2023 15:07:29 01/16/20 24 01/17/2024 CBC WITH DIFFE RENTI AL/PL ATELE T WBC 5.1 x10e3 /uL 3.4-10 .8 normal Not Available [facility] ([facility]) [address] [place], [address], 01/18/2024 15:07:40 01/16/20 24 01/17/2024 CBC WITH DIFFE RENTI AL/PL ATELE T RBC 4.21 x10e6 /uL 3.77-5 .28 normal Not Available [facility] ([facility]) [address] [facility], [place], [address], 01/18/2024 15:07:40 01/16/20 24 01/17/2024 CBC WITH DIFFE RENTI AL/PL ATELE T hemoglobin 12.9 g/dL 11.1-1 5.9 normal Not Available [facility] ([facility]) [address] [facility], [place], [address], 01/18/2024 15:07:40 01/16/20 24 01/17/2024 CBC WITH DIFFE RENTI AL/PL ATELE T hematocrit 40.0 % 34.0-4 6.6 normal Not Available [facility] ([facility]) [address] [facility], [place], [address], 01/18/2024 15:07:40 01/16/20 24 01/17/2024 CBC WITH DIFFE RENTI AL/PL ATELE T MCV 95 fL 79-97 normal Not Available [facility] ([facility]) [address] [facility], [place], [address], 01/18/2024 15:07:40 01/16/20 24 01/17/2024 CBC WITH DIFFE RENTI AL/PL ATELE T MCH 30.6 pg 26.6-3 3.0 normal Not Available [facility] ([facility]) [address] [place], [address], 01/18/2024 15:07:40 01/16/20 24 01/17/2024 CBC WITH DIFFE RENTI AL/PL ATELE T MCHC 32.3 g/dL 31.5-3 5.7 normal Not Available [facility] ([facility]) [address] [place], [address], 01/18/2024 15:07:40 01/16/20 24 01/17/2024 CBC WITH DIFFE RENTI AL/PL ATELE T RDW 12.9 % 11.7-1 5.4 Not Available [facility] ([facility]) [address] [facility], [place], [address], 01/18/2024 15:07:40 01/16/20 24 01/17/2024 CBC WITH DIFFE RENTI AL/PL ATELE T platelets 368 x10e3 /uL 150-45 0 normal Not Available [facility] ([facility]) [address] [facility], [place], [address], 01/18/2024 15:07:40 01/16/20 24 01/17/2024 CBC WITH DIFFE RENTI AL/PL ATELE T neutrophils 68 % not estab. normal Not Available [facility] ([facility]) [address] [facility], [place], [address], 01/18/2024 15:07:40 01/16/20 24 01/17/2024 CBC WITH DIFFE RENTI AL/PL ATELE T lymphs 16 % not estab. normal Not Available [facility] ([facility]) [address] [facility], [place], [address], 01/18/2024 15:07:40 01/16/20 24 01/17/2024 CBC WITH DIFFE RENTI AL/PL ATELE T monocytes 11 % not estab. normal Not Available [facility] ([facility]) [address] [facility], [place], [address], 01/18/2024 15:07:40 01/16/20 24 01/17/2024 CBC WITH DIFFE RENTI AL/PL ATELE T eos 4 % not estab. normal Not Available [facility] ([facility]) [address] [facility], [place], [address], 01/18/2024 15:07:40 01/16/20 24 01/17/2024 CBC WITH DIFFE RENTI AL/PL ATELE T basos 1 % not estab. 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 0 normal Not Available [facility] ([facility]) [address] [facility], [place], [address], 01/18/2024 15:07:40 01/16/20 24 01/17/2024 CBC WITH DIFFE RENTI AL/PL ATELE T lymphs (absolute) 0.8 x10e3 /uL 0.7-3. 1 normal Not Available [facility] ([facility]) [address] [place], [address], 01/18/2024 15:07:40 01/16/20 24 01/17/2024 CBC WITH DIFFE RENTI AL/PL ATELE T monocytes(ab solute) 0.6 x10e3 /uL 0.1-0. 9 normal Not Available [facility] ([facility]) [address] [place], [address], 01/18/2024 15:07:40 01/16/20 24 01/17/2024 CBC WITH DIFFE RENTI AL/PL ATELE T eos (absolute) 0.2 x10e3 /uL 0.0-0. 4 normal Not Available [facility] ([facility]) [address] [place], [address], 01/18/2024 15:07:40 01/16/20 24 01/17/2024 CBC WITH DIFFE RENTI AL/PL ATELE T baso (absolute) 0.1 x10e3 /uL 0.0-0. 2 normal Not Available [facility] ([facility]) [address] [place], [address], 01/18/2024 15:07:40 01/16/20 24 01/17/2024 CBC WITH DIFFE RENTI AL/PL ATELE T immature granulocytes 0 % not estab. Not Available [facility] ([facility]) [address] [facility], [place], [address], 01/18/2024 15:07:40 01/16/20 24 01/17/2024 CBC WITH DIFFE RENTI AL/PL ATELE T immature grans (abs) 0.0 x10e3 /uL 0.0-0. 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 Not Available [facility] ([facility]) [address] [facility], [place], [address], 01/18/2024 15:07:40 01/16/20 24 01/18/2024 CD20 B CELLS % cd19-B cells 14.0 % 4.6-22 .1 Not Available [facility] ([facility]) [address] [facility], [place], [address], 01/18/2024 15:07:42 01/16/20 24 01/18/2024 CD20 B CELLS % cd20-B cells 14.0 % 5.0-22 .3 Not Available [facility] ([facility]) [address] [facility], [place], [address], 01/18/2024 15:07:42 03/22/20 23 03/22/2023 MRI, brain + brain stem, w/wo contr ast [facility] Access ion Number : [id number] [id number] Hollis posey Name: Ana Laura Grahama neema Record Number : [id number] Date of : 1959 Date of Exam: 2022 Referr ing Physic emanuel: Gonzalo Canales MD Neurol [facility] [address] [facility] [address] [place] [address] Exam: MR Brain (C-/C+ ) CPT 83276 Room Descri ption: [place] Siem Espr 1.5 HISTOR Y: Multip le [...] ly Signed By: Fredi Pompa MD [email or web address] [facility] [address] [place], [address], 03/26/2023 13:10:29 Result Notes None recorded. Problems Name Problem SNOMED Code Status Onset Date Resolution Date Notes Provider Name and Address Organization Details Recorded Time Multiple sclerosis 20334506 Active 991 Eloy Canales MD [address] [place] [address] [place], [address] , [facility] [employer] 17:07:51 Notes:06/29/2022 Gilenya appr oval supporting information [...] discuss the situation with that person from [facility]? m y rationale is that Gilenya is [...] of 0.153 vs0.258, respectively, p= 0.0138)[1]. From: [facility] announced today topline results from the [...] 04/23/2024 DATA REVIEW completed Eloy Canales MD [address] [place] [address] [place], [address], [facility] [employer] 04/23/2024 08:10:44 01/16/2024 DATA REVIEW completed Eloy Canales MD [address] [place] [address] [place], [address], [facility] 01/16/2024 07:59:58 10/24/2023 DATA REVIEW completed Eloy Canales MD [address] [place] [address] Vasiliy HARINI Shaffer, [address], [facility] 10/24/2023 08:58:07 05/31/2023 DATA REVIEW completed Eloy Canales MD [address] [place] [address] Vasiliy HARINI Shaffer, [address], [facility] 05/31/2023 08:08:54 04/09/2023 DATA REVIEW completed Eloy Canales MD [address] [place] [address] HARINI Shaffer, [address], [facility] 04/09/2023 08:34:09 02/28/2023 DATA REVIEW completed Eloy Canales MD [address] [place] [address] Vasiliy HARINI Shaffer, [address], [facility] 02/28/2023 08:21:18 02/13/2022 DATA REVIEW completed Eloy Canales MD [address] [place] [address] Vasiliy HARINI Shaffer, [address], [facility] 02/13/2022 08:25:58 11/09/2021 DATA REVIEW completed Eloy Canales MD [address] [place] [address] HARINI Shaffer, [address], [facility] 11/09/2021 08:20:05 08/15/2021 DATA REVIEW completed Eloy Canales MD [address] [place] [address] Vasiliy HARINI Shaffer, [address], [facility] 08/15/2021 08:11:06 01/12/2021 DATA REVIEW completed Eloy Canales MD [address] [place] [address] Vasiliy HARINI Shaffer, [address], [facility] 01/12/2021 08:45:47 Imaging Results Imaging Date Name Status LastModified by Organiz ation Details LastModified Time 03/22/2023 MRI, brain + brain stem, w/wo contrast completed [email or web address] [facility] [address] [facility] [address], [place], [address], 03/26/2023 13:10:29 Procedure Notes None recorded. Medical Equipment None Reported. Allergies Allergen ID Allergen Name Allergen Category Reaction Reaction Severity Criticality Documentation Date Start Date Code Code System Note Provider Name and Address Organization Details Recorded Time 450 lisinopri l medicatio n Not available Not available Not available 01/12/2021 19820 RxNorm Francesca [place] on [facility] 08:40:31 451 Levaquin medicatio n Not available Not available Not available 01/12/2021 49429 2 RxNorm Francesca [place] on [facility] 08:43:17 Medications Name Sig Start Date [...] Code Diagnosis Note 1758 Eloy Canales MD [address] [place] [address] 01/12/2021 08:26:43 01/12/2021 09:22:04 Multiple sclerosis 13368897 G35 4596 Eloy Canales MD [address] [place] [address] 08/15/2021 07:39:25 08/15/2021 08:58:00 Multiple sclerosis 71469658 G35 5629 Eloy Canales MD [address] [place] [address] 11/09/2021 07:52:16 11/09/2021 16:59:36 Multiple sclerosis 55496337 G35 6638 Eloy Canales MD [address] [place] [address] 02/13/2022 07:37:18 02/13/2022 08:41:50 Multiple sclerosis 95878552 G35 61583 Eloy Canales MD [address] [place] [address] 02/28/2023 08:09:12 02/28/2023 09:39:01 Multiple sclerosis 21251426 G35 63349 Eloy Canales MD [address] [place] [address] 04/09/2023 07:48:48 04/09/2023 08:43:12 Multiple sclerosis 03373954 G35 62831 Eloy Canales MD [address] [place] [address] 05/31/2023 07:49:04 05/31/2023 09:00:37 Multiple sclerosis 40086539 G35 75810 Eloy Canales MD [address] [place] [address] 10/24/2023 08:07:42 10/24/2023 09:30:09 Multiple sclerosis 21701225 G35 [address]7626 Eloy Canales MD [address] [place] [address] 01/16/2024 07:47:30 01/16/2024 16:45:38 Multiple sclerosis [id number] G35 39723 Eloy Canales MD [address] [place] [address] 04/23/2024 08:03:02 04/23/2024 09:51:34 Multiple sclerosis 42115177 G35 Health Concerns Section Related Observation LastModified by Organization Detai ls LastModified Time None Recorded Concern Status LastModified by Organization Details LastModified Time None Recorded Advance Directives Directive None Recorded Payers Encounter Date Sequence Insurance Name Policy Number Policy Moreno Covered Member ID Moreno Member ID Guarantor Name 04/09/2023 1 [place] 111 Ana Laura A Santos [id number] Ana Laura A Santos 05/31/2023 1 [place] 111 Ana Laura A Santos [id number] Ana Laura A Santos 10/24/2023 1 [place] 111 Ana Laura A Santos [id number] Ana Laura A Santos 01/16/2024 1 [place] 111 Ana Laura A Santos [id number] Ana Laura A Santos 04/23/2024 1 [place] 111 Ana Laura A Santos [id number] Ana Laura A Santos Notes Date Note [...] stressful. She has four relatives in the [facility], right in the center of where the [...] distance. 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 If there is someone there, it is less than 10 minutes. She has been exposed a couple of times, for instance once when someone who subsequently tested positive hugged her at [place], 2020. She has always tested negative. She [...] not helped her pain. Eloy Canales MD [address] [place] [address] [place], [address], [facility] 04/09/2023 08:37:56 05/31/2023 text/html Follow up [...] stressful. She has four relatives in the [facility], right in the center of where the [...] distance. 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 If there is someone there, it is less than 10 minutes. She has been exposed a couple of times, for instance once when someone who subsequently tested positive hugged her at [place], 2020. She has always tested negative. She [...] not helped her pain. Eloy Canales MD [address] [place] [address] [place], [phone], [facility] Neurology [facility] 05/31/2023 08:38:05 10/24/2023 text/html Follow up [...] stressful. She has four relatives in the [facility], right in the center of where the [...] distance. 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 If there is someone there, it is less than 10 minutes. She has been exposed a couple of times, for instance once when someone who subsequently tested positive hugged her at [place], 2020. She has always tested negative. She [...] not helped her pain. Eloy Canales MD [address] [place] [address] [place], [phone], [facility] Neurology [facility] 10/24/2023 09:17:15 01/16/2024 text/html Follow up [...] stressful. She has four relatives in the [facility], right in the center of where the [...] distance. 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 If there is someone there, it is less than 10 minutes. She has been exposed a couple of times, for instance once when someone who subsequently tested positive hugged her at [place], 2020. She has always tested negative. She [...] not helped her pain. Eloy Canales MD [address] [place] [address], [phone], [facility] Neurology [facility] 01/16/2024 08:29:49 04/23/2024 text/html Follow up [...] stressful. She has four relatives in the [facility], right in the center of where the [...] distance. 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 If there is someone there, it is less than 10 minutes. She has been exposed a couple of times, for instance once when someone who subsequently tested positive hugged her at [place], 2020. She has always tested negative. She [...] not helped her pain. Eloy Canales MD [address] [place] [address] [place], [phone], [facility] Neurology [facility] 04/23/2024 08:34:49 OBGyn Episode No OBEpisode recorded.
--- OUTSIDE RECORDS SUMMARY | 2024-10-01 11:24 | XMS_ITS | Encounter Summary ---
Author Organization [address] [address] Care Team Providers Care Patient Care Nursing Assistant Name Role Phone Tia Goodwin PA-C Primary Care Provi margo Eloy Canales MD Unavailable Cecille Mendez MD Unavailable [phone] Encounter Details Date Type Department Care Team (Late st Contact Info) Description 08/27/2023 Scanned Document [address] [phone] Primary Care, Scan Social History Tobacco Use [...] Description 02/24/2025 8:30 AM EDT Office Visit [facility] [address] [facility] [address] [place] [address] Tia Goodwin PA-C 100 [place] [address] documented as of this encounter Visit Diagnoses Not on filedocumented in this encounter Care Teams Patient Care Nursing Assistant Relationship Specialty Start Date End Date Tia Goodwin PA-C 100 [place] [address] PCP - General Internal Medicine 08/26/23 Eloy Canales MD [address] [address] Neurology 08/26/23 Cecille Mendez MD 46 [facility] [address] [place] [address] Referring Provider Obstetrics and Gynecology 08/26/23 Natalie Walker Physician Gastroenterology 08/13/23 documented as of this encounter
--- OUTSIDE RECORDS SUMMARY | 2024-10-01 11:24 | XMS_ITS | Encounter Summary ---
Author Organization [facility] Address [address] [place] [address] Care Team Providers Care Nurses Educator Name Role Phone Tia Goodwin PA-C Primary Care Provi margo Eloy Canales MD Unavailable [phone] Cecille Mendez MD Unavailable [phone] Encounter Details Date Type Department Care Team (Late Contact Info) Description 01/17/2024 Scanned Document [facility] [address] [place] [address] Neurology, Scan Social History Tobacco Use Types [...] Description 02/24/2025 8:30 AM EDT Office Visit [address] [place] [phone] Tia Goodwin PA-C 100 [place] [address] documented as of this encounter Visit Diagnoses Not on filedocumented in this encounter Care Teams Nurses Educator Relationship Specialty Start Date End Date Tia Goodwin PA-C [address] [place] [address] PCP - General Internal Medicine 08/26/23 Eloy Canales MD [address] [address] Neurology 08/26/23 Cecille Mendez MD 46 [facility] [address] [place] [address] Referring Provider Obstetrics and Gynecology 08/26/23 Natalie Walker Physician Gastroenterology 08/13/23 documented as of this encounter
--- OUTSIDE RECORDS SUMMARY | 2024-10-01 11:24 | XMS_ITS | Encounter Summary ---
Author Organization [address] [address] Care Team Providers Care Airborne Electronics Analyst Name Role Phone Tia Goodwin PA-C Primary Care Provi margo Eloy Canlaes MD Unavailable [phone] Cecille Mendez MD Unavailable [phone] Encounter Details Date Type Department Care Team (Late Contact Info) Description 10/25/2023 Scanned Document [facility] NEUR[facility] Neurology, Scan Social History Tobacco [...] Description 02/24/2025 8:30 AM EDT Office Visit [address] [place] [phone] Tia Goodwin PA-C 100 [place] [address] documented as of this encounter Visit Diagnoses Not on filedocumented in this encounter Care Teams Airborne Electronics Analyst Relationship Specialty Start Date End Date Tia Goodwin PA-C [address] [place] [address] PCP - General Internal Medicine 08/26/23 Eloy Canales MD [address] [place] [address] Neurology 08/26/23 Cecille Mendez MD 46 [facility] [address] [place] [address] Referring Provider Obstetrics and Gynecology 08/26/23 Natalie Walker Physician Gastroenterology 08/13/23 documented as of this encounter
[2024-10-01 11:25] LABS: Bacteria Urine 4+ (None Seen); RBC Urine 0-2 /HPF (0-2)
--- OUTSIDE RECORDS SUMMARY | 2024-10-01 11:25 | XMS_ITS | Encounter Summary ---
Author Organization [facility] Address [address] [place] [address] Care Team Providers Care Cold Type Artist Name Role Phone Tia Goodwin PA-C Primary Care Provi margo Eloy Canales MD Unavailable [phone] Cecille Mendez MD Unavailable [phone] Encounter Details Date Type Department Care Team (Late Contact Info) Description 04/29/2024 Scanned Document [facility] [address] [place] [address] Neurology, Scan Social History Tobacco Use Types [...] Description 02/24/2025 8:30 AM EDT Office Visit [address] [place] [phone] Tia Goodwin PA-C [address] [place] [address] documented as of this encounter Visit Diagnoses Not on filedocumented in this encounter Care Teams Cold Type Artist Relationship Specialty Start Date End Date Tia Goodwin PA-C [address] [place] [address] PCP - General Internal Medicine 08/26/23 Eloy Canales MD [address] [address] Neurology 08/26/23 Cecille Mendez MD [address] [facility] [address] [place] [address] Referring Provider Obstetrics and Gynecology 08/26/23 Natalie Walker Physician Gastroenterology 08/13/23 documented as of this encounter
--- OUTSIDE RECORDS SUMMARY | 2024-10-01 11:25 | XMS_ITS | Clinical Summary ---
Author Organization [facility] Address [address] [facility] [place] [address] Phone Care Team Providers Care Stationary Engineer Apprentice Name Role Phone Unavailable Primary Care Provider [...] patient's age to complete this topic Insurance [facility]
--- OUTSIDE RECORDS SUMMARY | 2024-10-01 11:25 | XMS_ITS | Clinical Summary ---
Author Organization [facility] Address [address] [place] [address] Care Team Providers Care General Office Assistant Name Role Phone Tia Goodwin PA-C Primary Care Provi margo Eloy Canales MD Unavailable [phone] Cecille Mendez MD Unavailable [phone] Allergies Active Allergy Reactions Criticality Noted Date [...] tablet (650 mg total) by mouth daily. 01/18/20 23 Active ocrelizumab (Ocrevus) 300 MG/10ML injection as directed Intravenous 01/30/20 24 Active Turmeric 500 MG Cap Take by mouth. Activ e Magnesium 400 MG Cap Take by mouth. Activ e fluticasone (FloNASE) 50 mcg/spray nasal sprayIndications:P ND (post-nasal drip) 1 spray into each nostril daily. 1 each 3 02/20/20 24 Active losartan (COZAAR) 50 MG tabletIndications: Essential hypertension TAKE ONE TABLET BY MOUTH EVERY DAY 90 tablet 3 09/02/19 25 Active atorvastatin (LIPITOR) 10 MG tabletIndications: Hyperlipidemia, unspecified hyperlipidemia type Take 1 tablet (10 mg total) by mouth daily. 90 tablet 3 09/04/19 25 026 Active HYDROcodone-acetam inophen (NORCO) 5-325 mg per tabletIndications: Migraine without status migrainosus, not intractable, unspecified migraine type Take 1 tablet by mouth 4 times daily (every 6 hours) as needed (headache). Max Daily Amount: 4 tablets 30 tablet 09/04/19 25 025 Active Apple Cider Vinegar 600 MG Cap Take by mouth. Discontin ued(Med List Clean-up/ Old Med - No E-Cancel/ No AVS) glucosamine chondroitin complex (OSTEO BI-FLEX) Tab tablet Take by mouth. Discontin ued(Med List Clean-up/ Old Med - No E-Cancel/ No AVS) HYDROcodone-acetam inophen (NORCO) 5-325 mg per tabletIndications: Migraine without status migrainosus, not intractable, unspecified migraine type Take 1 tablet by mouth 4 times daily (every 6 hours) as needed (headache). Max Daily Amount: 4 tablets 30 tablet 02/20/20 24 025 Discontin ued(Reord er) Active Problems Problem Noted Date Diagnosed Date [...] Encounters Date Type Department Care Team Description 09/15/2024 Orders Only [facility] [address] [place] [address] Primary Care, Scan 09/03/2024 8:00 AM EDT Office Visit [address] [phone] Tia Goodwin PA-C MS (multiple sclerosis) (HCC) [...] 20-valent conjugate vaccination 09/03/2024 Travel 08/29/[address] [address] Tia Goodwin PA-C Essential hypertension from Last [...] and Family Not on file 09/03/2024 Attends Yaz[employer]ism Services Not on file 09/03 Active Member [...] any time in the past [address] [facility], were you homeless or living in a retirement (including now)? No 09/03/2024 Education Answer Date [...] Description 02/24/2025 8:30 AM EDT Office Visit [address] [address] Tia Goodwin PA-C 100 [place] [address] Health Maintenance Due Date Last Done Comments [...] Procedure Name Priority Date/Time Associated Diagnosis Comments ULTRASOUND EXTERNAL RESULT Routine 09/15/2024 11:00 AM EDT DRUG MONITORING 14 Routine 09/03/2024 8: 45 AM EDT Migraine without status migrainosus, not intractable, unspecified migraine type IMAGING BREAST/BX/MAMMO Routine 04/08/2024 11:23 AM EST from Last 3 Months or Most Recently Relevant to Health Maintenance Results * Ultrasound External Result (09/15/2024 11:00 AM EDT) Anatomical Region Laterality Modality Ultrasound us Scan Primary Care IMG US ORDERABLES Edited Resul t - Final * (ABNORMAL) Drug Monitoring 14 (Q [id number]) (09/03/2024 8:45 AM EDT) medMATCH Summary [facility] Comment: ?Prescribed ?Prescribed ?Not Prescribed ?Consistent ?Inconsistent ?Inconsistent ?Hydrocodone ? Prescribed Drug 1 Hydrocodone Sc[facility]old Barbiturates NEGATIVE <300 ng/mL Scaffold Fentanyl, Urine NEGATIVE <0.5 ng/mL Sc[facility]old Methadone Metabolite NEGATIVE <100 ng/mL Sc[facility]old Phencyclidine, Urine NEGATIVE <25 ng/mL Scaffold Desmethyltramadol NEGATIVE <100 ng/mL Sc[facility]old Tramadol NEGATIVE <100 ng/mL Scaffold Tramadol Comments Qu Stepsss Comment:See LDT Notes Ritalinic Acid NEGATIVE <100 ng/mL Scaffold Ritalinic Acid Comments Scaffold Comment:See LDT Notes Alcohol Metabolites NEGATIVE <500 ng/mL Scaffold Amphetamines, Urine Ql NEGATIVE <500 ng/mL Scaffold Benzodiazepines NEGATIVE <100 ng/mL Scaffold Buprenorphine, Urine Ql NEGATIVE <5 ng/mL Sc[facility]old Cocaine Metabolite NEGATIVE <150 ng/mL Scaffold 6 Acetylmorphine NEGATIVE <10 ng/mL Scaffold Marijuana Metabolite NEGATIVE <20 ng/mL Scaffold MDMA NEGATIVE <500 ng/mL Scaffold Opiates NEGATIVE <100 ng/mL Scaffold medMATCH Opiates INCONSISTENT(A ) Scaffold Oxycodone Screen, Urine NEGATIVE <100 ng/mL Scaffold Creatinine, Urine 32.0 > or = 20.0 mg/dL Scaffold pH 7.8 4.5 - 9.0 Scaffold Oxidant NEGATIVE <200 mcg/mL Scaffold Notes and Comments Q uStepsss Comment: This drug testing is for medical treatment only. Analysis was performed as non-forensic testing and these results should be used only by healthcare providers to render diagnosis or treatment, or to monitor progress of medical conditions. LDT Notes: Confirmation tests were developed and their analytical performance characteristics have been determined by [employer]. It has not been cleared or approved by the FDA. This assay has been validated pursuant to the CLIA regulations and is used for clinical purposes. medMATCH(R) enables providers to identify if drug use is consistent or inconsistent with a corresponding prescribed medication(s) list. Healthcare Providers needing Interpretation assistance, please contact us at [phone] ( ) M-F, 8am to 10pm EST Urine Urine specimen / Unknown 09/03/2024 8:45 AM EDT 09/04/2024 4:00 AM EDT us Tia Goodwin PA-C URINE ORDERABLES Fi nal Result [facility] [address] [place] [address] * Imaging Breast/Bx/Mammo Result (04/08/2024 11:23 AM EST) Anatomical Region Laterality Modality Other us External Provider MD [facility] [employer] Final Result from Last 3 Months or Most Recently Relevant to Health Maintenance [facility] Care Teams General Office Assistant Relationship Specialty Start Date End Date Tia Goodwin PA-C [address] [place] [address] PCP - General Internal Medicine 08/26/23 Eloy Canales MD [address] [address] Neurology 08/26/23 Cecille Mendez MD 46 [facility] [address] [place] [address] Referring Provider Obstetrics and Gynecology 08/26/23 Natalie Walker Physician Gastroenterology 08/13/23
[2024-10-01 11:26] LABS: Transitional Epi Cells Urine Present
== END 2024-10-01 08:12 | disposition home or self-care (01) ==
LOC: HO.LAB 08:11
PROVIDERS: Absent Provider Internal Medicine Hypertension Specialist; PCP Physician Assistant Medical; Visit Provider Nurse Practitioner Family
DX: N20.0 Calculus of kidney (principal); N18.30 Chronic kidney disease, stage 3 unspecified; Z13.9 Encounter for screening, unspecified
CPT/HCPCS: 36415; 80048; 81001; 81003; 85025

== ENCOUNTER 2024-10-20 10:14 | Outpatient (AMB) | payer BC, SELFPAY ==
--- NOTE | 2024-10-20 10:17 | HO.NEPHOV_ITS ---
Vital Signs 10/20/24 10:20 Height 5 ft 2.5 in Weight 191 lb 4 oz BMI 34.4 BP 148/88 H Blood Pressure Location Rt brachial Position Sitting Pulse 65 Pulse Source Pulse Oximeter Pulse Oximetry (%) 99 Oxygen Delivery Method Room Air Intake Visit Reasons: Kidney stones/ 1 Year FU/ LVM Household Appliances Salesperson Required: No Accompanied by: Self / Same As Patient Allergies levofloxacin [From LEVAQUIN] Allergy (Severe, Verified 10/20/24 10:19) RENDERS PT IMMOBILE acetaminophen [From PERCOCET] Allergy (Unknown, Verified 10/20/24 10:19) NAUSEA & VOMITING lisinopril Allergy (Unknown, Verified 10/20/24 10:19) Unknown oxycodone [From PERCOCET] Allergy (Unknown, Verified 10/20/24 10:19) NAUSEA & VOMITING gluten Adverse Reaction (Unknown, Uncoded 10/01/24 12:13) constipation Medication List - Last Reconciled 10/20/24 by Topher Hammer MD atorvastatin 10 mg PO DAILY losartan 50 mg PO DAILY ocrelizumab (Ocrevus) 600 mg IV [id number] sodium bicarbonate 650 mg PO DAILY HPI Comments Details: 62-year-old woman with a history of nephrolithiasis. From renal standpoint she is doing well. No new renal issues. She is on sodium bicarbonate tablets History of MS 10/20/24 64-year-old female presenting with follow-up on kidney health. She has a notable history of multiple sclerosis, last receiving an infusion in May for symptom management, typically noted to last one year per infusion. Upcoming reassessment for MS is scheduled for December. Reporting an absence of nephrolithiasis as affirmed by Dr. Tori Krik following recent imaging, she adheres to periodic renal evaluations, including ultrasound and lab tests, all indicating stable kidney function. The patient acknowledges a routine water consumption increase to mitigate the risk of recurrent kidney stone formation, underscoring the importance of maintaining a hydrated state and preventing urine concentration. Her regular medications include losartan, with a temporary deviation in intake due to work overnight shifts, although it is usually taken in mid to late afternoon. Visits to Dr. Tia Goodwin for semi-annual physical examinations are ongoing, with the next appointment in February. Prophylactic sodium bicarbonate management is in place, with recent renewals confirmed. [facility] Medical History Multiple sclerosis Family History Mother Hypertension Social History Patient Tobacco Use Status: Former Tobacco user Physical Exam Vital Signs: Last Vital Signs Pulse 65 10/20/24 10:20 BP 148/88 H 10/20/24 10:20 Pulse Ox 99 10/20/24 10:20 Oxygen Delivery Method Room Air 10/20/24 10:20 BMI result Body Mass Index 34.4 Awake. Comfortable. Neck is supple. Mucosa moist. Lungs bilateral scattered rhonchi. Heart S1-S2 heard no gallop. Abdomen soft. Extremities no edema. No involuntary movements. No myoclonus. Results Reviewed Nephrology Results: Hgb 12.3 g/dl (12.0-16.0) 10/01/24 WBC 5.7 X10*3/uL (4.8-10.8) 10/01/24 Plt Count 314 X10*3/uL (160-400) 10/01/24 Sodium 139 mmol/L (135-145) 10/01/24 Potassium 4.2 mmol/L (3.3-5.1) 10/01/24 Chloride 106 mmol/L (96-108) 10/01/24 Carbon Dioxide 26 mmol/L (22-29) 10/01/24 BUN 21 mg/dL (9-16) H 10/01/24 Creatinine 0.71 mg/dL (0.5-1.4) 10/01/24 Calcium 9.3 mg/dL (8.4-10.2) 10/01/24 Urine Protein Trace mg/dL (Neg-Trace) 10/01/24 Renal US 09/15/24 Assessment & Plan Assessment & Plan (1) Nephrolithiasis: Code(s): N20.0 - Calculus of kidney Category: Medical (2) Renal cyst: Code(s): N28.1 - Cyst of kidney, acquired Category: Medical Plan Recent renal ultrasonogram did not reveal any renal stones. F/u CT orederd by urology Encouraged her to stay on low-sodium diet Increase p.o. fluid intake to maintain a urine output of 2 L. Blood pressure is well controlled. No changes were made today. She will see her again in the next 1 year Orders: Orders Basic Metabolic Panel 1 Year N20.0 - Calculus of kidney, N28.1 - Cyst of kidney, acquired UA and rflx microscopic 1 Year N20.0 - Calculus of kidney, N28.1 - Cyst of kidney, acquired Coding Level of Care Code Est Pt Level 4 (59278) Diagnoses Nephrolithiasis N20.0 Renal cyst N28.1
[2024-10-20 10:20] VITALS: BP 148/88; PULSE 65; O2SAT 99; BMI 34.4
--- OUTSIDE RECORDS SUMMARY | 2024-10-20 11:24 | XMS_ITS | Encounter Summary ---
Author Organization [facility] Address [address] [place] [address] Care Team Providers Care Organ Builder Name Role Phone Tia Goodwin PA-C Primary Care Provi margo Eloy Canales MD Unavailable [phone] Cecille Mendez MD Unavailable Encounter Details Date Type Department Care Team (Late st Contact Info) Description 10/07/[address] [phone] Tia Goodwin PA-C 100 [place] [address] Social History Tobacco Use Types Packs/Day Years [...] and Family Not on file 09/03/2024 Attends Judaism Services Not on file 09/03 Active Member [...] any time in the past 12 m [facility], were you homeless or living in a assisted (including now)? No 09/03/2024 Education Answer Date [...] Description 02/24/2025 8:30 AM EDT Office Visit [address] [place] [phone] Tia Goodwin PA-C [address] [place] [address] documented as of this encounter Visit Diagnoses Not on filedocumented in this encounter Care Teams Organ Builder Relationship Specialty Start Date End Date Tia Goodwin PA-C [address] [place] [address] PCP - General Internal Medicine 08/26/23 Eloy Canales MD [address] [place] [address] Neurology 08/26/23 Cecille Mendez MD 46 [facility] [address] [place] [address] Referring Provider Obstetrics and Gynecology 08/26/23 Natalie Walker Physician Gastroenterology 08/13/23 documented as of this encounter
== END 2024-10-20 10:29 | disposition home or self-care (01) ==
LOC: HO.HKA 10:15
PROVIDERS: PCP Physician Assistant Medical; Visit Provider Internal Medicine Hypertension Specialist
DX: N20.0 Calculus of kidney (principal); N28.1 Cyst of kidney, acquired
CPT/HCPCS: 99214

== ENCOUNTER → 2024-10-20 10:14 | Outpatient (BNVA) | payer BC, SELFPAY | PROVIDERS: PCP Physician Assistant Medical; Visit Provider Internal Medicine Hypertension Specialist ==